=== PATIENT | female | born 1980 | race Caucasian/White ===

== ENCOUNTER 2017-06-04 11:34 | Emergency (ER) | payer OTHER ==
[2017-06-04 12:10] VITALS: BP 153/79
--- NOTE | 2017-06-04 13:30 | RAD ---
INDICATION: Right foot pain. Evaluate for foreign body. COMPARISON: None TECHNIQUE: AP, lateral, and oblique views were obtained. FINDINGS: The bony structures, joint spaces, and soft tissues are normal for age. IMPRESSION: NEGATIVE EXAMINATION. NO FOREIGN BODY IS IDENTIFIED..
--- NOTE | 2017-06-04 14:17 | UC ---
Lower Extremity/Ankle HPI - HPI Summary HPI Summary: ONE WEEK OF DEVELOPING TENDER LUMP TO PLANTAR ASPECT OF RIGHT LATERAL FOOT. UNSURE IF THIS COULD BE A POSSIBLE FOREIGN BODY. NO FEVER. - History of Current Complaint Chief Complaint: UCForeignBody Stated Complaint: FB IN FOOT Time Seen by Provider: 06/04/17 12:24 Hx Obtained From: Patient Hx Last Menstrual Period: 05/26/17 Onset/Duration: Gradual Onset, Lasting Days, Still Present Severity Initially: Mild Severity Currently: Moderate Pain Intensity: 3 Pain Scale Used: 0-10 Numeric Aggravating Factor(s): Standing, Ambulation Alleviating Factor(s): Rest, Elevation Able to Bear Weight: No - Risk Factors Gout Risk Factors: Negative DVT Risk Factors: Negative Septic Arthritis Risk Factor: Negative - Allergies/Home Medications Allergies/Adverse Reactions: Allergies Allergy/AdvReac Type Severity Reaction Status Date / Time Haloperidol [From Haldol] AdvReac Hallucinati Verified 06/04/17 12:05 ons Valproic Acid [From Depakote] AdvReac Altered Verified 06/04/17 12:05 Mental Status Home Medications: Home Medications ARIPiprazole TAB* [Abilify 15 MG TAB*] 06/04/17 [History] SitaGLIPtin (NF) [Januvia (NF)] 25 mg PO 06/04/17 [History] PMH/Surg Hx/FS Hx/Imm Hx Previously Healthy: Yes - Surgical History Surgical History: Yes Surgery Procedure, Year, and Place: D&C; elective ab; tubal ligation - Family History Known Family History: Positive: Hypertension - Social History Occupation: Employed Full-time Lives: With Family Alcohol Use: None Substance Use Type: None Smoking Status (MU): Heavy Every Day Tobacco Smoker Type: Cigarettes Amount Used/How Often: 1 PPD Length of Time of Smoking/Using Tobacco: since age 15 Household Exposure Type: Cigarettes Cessation Counseling: Patient Advised to Stop - Immunization History Most Recent Influenza Vaccination: unknown and refuses. Most Recent Tetanus Shot: unknown to pt. Most Recent Pneumonia Vaccination: n/a pt refused. Review of Systems Constitutional: Negative Skin: Other - TENDER LUMP RIGHT FOOT LATERAL PLANTAR ASPECT Eyes: Negative ENT: Negative Respiratory: Negative Cardiovascular: Negative Gastrointestinal: Negative Genitourinary: Negative Motor: Negative Neurovascular: Negative Musculoskeletal: Arthralgia, Myalgia Neurological: Negative Psychological: Negative Is Patient Immunocompromised?: No All Other Systems Reviewed And Are Negative: Yes Physical Exam Triage Information Reviewed: Yes Appearance: Well-Appearing, No Pain Distress, Well-Nourished Vital Signs: Initial Vital Signs Temp 97.9 F 06/04/17 12:07 Pulse 79 06/04/17 12:07 Resp 20 06/04/17 12:07 BP 153/79 06/04/17 12:07 Pulse Ox 99 06/04/17 12:07 Vital Signs Reviewed: Yes Eye Exam: Normal ENT Exam: Normal ENT: Positive: Normal ENT inspection, Hearing grossly normal, Pharynx normal Dental Exam: Normal Neck exam: Normal Neck: Positive: Supple, Nontender, No Lymphadenopathy Respiratory Exam: Normal Respiratory: Positive: Chest non-tender, Lungs clear, Normal breath sounds, No respiratory distress, No accessory muscle use Cardiovascular Exam: Normal Cardiovascular: Positive: RRR, No Murmur, Pulses Normal Abdominal Exam: Normal Abdomen Description: Positive: Nontender, No Organomegaly Musculoskeletal Exam: Normal Musculoskeletal: Positive: Strength Intact, ROM Intact Neurological Exam: Normal Psychological Exam: Normal Skin: Positive: Other - RIGHT FOOT LATERAL PLANTAR ASPECT 1CM X 1CM TENDER NODULE Lower Extremity Course/Dx - Differential Dx/Diagnosis Differential Diagnosis/HQI/PQRI: Cellulitis, Fracture (Closed), Sprain, Strain, Other Provider Diagnoses: POSSIBLE RETAINED FB RIGHT FOOT Discharge - Discharge Plan Condition: Stable Disposition: HOME Patient Education Materials: Soft Tissue Foreign Body (ED) Referrals: Andre Melton DO [Primary Care Provider] - Beni Jacobson MD [Medical Doctor] -
== END 2017-06-04 13:45 | disposition home or self-care (01) ==
LOC: UCEAST 11:34
DX: R22.9 Localized swelling, mass and lump, unspecified (principal); Z88.8 Allergy status to other drugs, medicaments and biological substances; F17.210 Nicotine dependence, cigarettes, uncomplicated
CPT/HCPCS: 99211; G0463

== ENCOUNTER → 2017-07-12 18:43 | Emergency (ER) | payer OTHER ==
[2017-07-12 20:01] VITALS: BP 129/84
--- NOTE | 2017-07-12 21:29 | UC ---
Respiratory Complaint HPI - HPI Summary HPI Summary: chest cold throat tickle and cough began this morning - History of Current Complaint Chief Complaint: UCGeneralIllness Stated Complaint: CHEST CONGESTION Time Seen by Provider: 07/12/17 21:25 Hx Obtained From: Patient Hx Last Menstrual Period: jun 12 ?: No Onset/Duration: Sudden Onset Timing: Constant Severity Initially: Mild Severity Currently: Mild Character: Cough: Nonproductive Alleviating Factors: Nothing Associated Signs And Symptoms: Positive: URI - Allergies/Home Medications Allergies/Adverse Reactions: Allergies Allergy/AdvReac Type Severity Reaction Status Date / Time Haloperidol [From Haldol] AdvReac Hallucinati Verified 06/04/17 12:05 ons Valproic Acid [From Depakote] AdvReac Altered Verified 06/04/17 12:05 Mental Status Home Medications: Home Medications Aripiprazole Maintena (NF) [Abilify Maintena (NF)] 400 mg IM Q28D 07/12/17 [ History Confirmed 07/12/17] PMH/Surg Hx/FS Hx/Imm Hx Previously Healthy: No Psychological History: Schizophrenia - Surgical History Surgical History: Yes Surgery Procedure, Year, and Place: D&C - Family History Known Family History: Positive: None - Social History Occupation: Unemployed Lives: With Family Alcohol Use: Rare Substance Use Type: None Smoking Status (MU): Heavy Every Day Tobacco Smoker Length of Time of Smoking/Using Tobacco: 26 years Household Exposure Type: Cigarettes Cessation Counseling: Patient Advised to Stop Review of Systems Constitutional: Negative Skin: Negative Eyes: Negative ENT: Negative Respiratory: Cough Cardiovascular: Negative Gastrointestinal: Negative Genitourinary: Negative Motor: Negative Neurovascular: Negative Musculoskeletal: Arthralgia Neurological: Headache Psychological: Negative Is Patient Immunocompromised?: No All Other Systems Reviewed And Are Negative: Yes Physical Exam Triage Information Reviewed: Yes Appearance: Well-Appearing, No Pain Distress, Well-Nourished Vital Signs: Initial Vital Signs Temp 98.0 F 07/12/17 19:55 Pulse 90 07/12/17 19:55 Resp 18 07/12/17 19:55 BP 129/84 07/12/17 19:55 Pulse Ox 99 07/12/17 19:55 Vital Signs Reviewed: Yes Eye Exam: Normal Eyes: Positive: Conjunctiva Clear ENT Exam: Normal ENT: Positive: Normal ENT inspection, Hearing grossly normal, Pharynx normal, Sinus tenderness, Uvula midline. Negative: Nasal congestion, Nasal drainage, Tonsillar swelling, Tonsillar exudate, Trismus, Muffled voice, Hoarse voice Dental Exam: Normal Neck exam: Normal Neck: Positive: Supple, Nontender, No Lymphadenopathy Respiratory Exam: Normal Respiratory: Positive: Chest non-tender, Lungs clear, Normal breath sounds, No respiratory distress, No accessory muscle use Cardiovascular Exam: Normal Cardiovascular: Positive: RRR, No Murmur, Pulses Normal, Brisk Capillary Refill Musculoskeletal Exam: Normal Musculoskeletal: Positive: Strength Intact, ROM Intact, No Edema Neurological Exam: Normal Neurological: Positive: Alert Psychological Exam: Normal Skin Exam: Normal UC Diagnostic Evaluation - Laboratory O2 Sat by Pulse Oximetry: 99 Respiratory Course/Dx - Course Course Of Treatment: may use zithromax if sx do not rexolve with fluids, tylenol or ibuprofen - Differential Dx/Diagnosis Provider Diagnoses: nicotine dependent, Bronchitis Discharge - Discharge Plan Condition: Stable Disposition: HOME Prescriptions: Azithromycin TAB* [Zithromax TAB (Z-MAGDALENO) 250 mg #6 tabs] 250 mg PO DAILY #4 tab Patient Education Materials: How to Stop Smoking (ED), Acute Bronchitis (ED), How to Use a Metered-Dose Inhaler and a Spacer (ED) Referrals: Andre Melton DO [Primary Care Provider] - If Needed
[2017-07-12] MEDS: Azithromycin TAB* 250 MG PO ONE (22:03)
[2017-07-12] MEDS: Albuterol HFA INHALER* 8 gm MDI INH ONE (22:04)
== END | disposition home or self-care (01) ==
LOC: MERGE 18:43 → UCEAST 18:43
DX: J40 Bronchitis, not specified as acute or chronic (principal); Z88.8 Allergy status to other drugs, medicaments and biological substances; F20.9 Schizophrenia, unspecified; Z72.0 Tobacco use
CPT/HCPCS: 99202; A9270-GY; G0463

== ENCOUNTER 2017-10-26 17:13 | Emergency (ER) | payer OTHER ==
[2017-10-26 17:46] VITALS: BP 150/90
--- NOTE | 2017-10-26 18:39 | UC ---
Complaint Female HPI - HPI Summary HPI Summary: 37 yo WF c/o urinary frequency urgency and dysuria x 1 week asociated with f/c and LBP - History Of Current Complaint Chief Complaint: UCGU Stated Complaint: URINARY DISCOMFORT Time Seen by Provider: 10/26/17 17:49 Hx Obtained From: Patient Hx Last Menstrual Period: 10/14/17 Onset/Duration: Lasting Days Timing: Lasting Days Severity Initially: Moderate Severity Currently: Moderate Pain Intensity: 8 - Allergies/Home Medications Allergies/Adverse Reactions: Allergies Allergy/AdvReac Type Severity Reaction Status Date / Time divalproex sodium Allergy Altered Verified 10/26/17 17:47 [From Depakote] Mental Status haloperidol [From Haldol] Allergy Hallucinati Verified 10/26/17 17:47 ons PMH/Surg Hx/FS Hx/Imm Hx - Surgical History Surgical History: Yes Surgery Procedure, Year, and Place: D&C; elective ab; tubal ligation - Family History Known Family History: Positive: None, Hypertension - Social History Alcohol Use: None Substance Use Type: None Smoking Status (MU): Heavy Every Day Tobacco Smoker Type: Cigarettes Amount Used/How Often: 1 PPD Length of Time of Smoking/Using Tobacco: since age 15 Household Exposure Type: Cigarettes - Immunization History Most Recent Influenza Vaccination: unknown and refuses. Most Recent Tetanus Shot: unknown to pt. Most Recent Pneumonia Vaccination: n/a pt refused. Review of Systems Constitutional: Fever, Chills Skin: Negative Eyes: Negative ENT: Negative Respiratory: Negative Cardiovascular: Negative Gastrointestinal: Negative Genitourinary: Dysuria, Frequency, Urgency, Other - foul smelling urine Motor: Negative Neurovascular: Negative Musculoskeletal: Negative Neurological: Negative Psychological: Negative All Other Systems Reviewed And Are Negative: Yes Physical Exam Triage Information Reviewed: Yes Appearance: Well-Appearing Vital Signs: Initial Vital Signs Temp 36.7 C 10/26/17 17:41 Pulse 106 10/26/17 17:41 Resp 16 10/26/17 17:41 BP 150/90 10/26/17 17:41 Pulse Ox 98 10/26/17 17:41 Eye Exam: Normal ENT Exam: Normal Dental Exam: Normal Neck exam: Normal Neck: Positive: 1 Respiratory Exam: Normal Cardiovascular Exam: Normal Abdomen Description: Positive: Soft, CVA Tenderness (R) - mild, CVA Tenderness ( L) Musculoskeletal Exam: Normal Neurological Exam: Normal Psychological Exam: Normal Skin Exam: Normal Complaint Female Dx - Course Course Of Treatment: UA neg with clinical signs of UTI- will tx with Macrobid x 10days - Differential Dx/Diagnosis Provider Diagnoses: Ascending UTI. elevated BP in acute illness Discharge - Sign-Out/Discharge Documenting (check all that apply): Discharge - Discharge Plan Condition: Stable Disposition: HOME Prescriptions: Nitrofurantoin Macrocrystal [Nitrofurantoin] 100 mg PO 12 10 Days #20 capsule Patient Education Materials: Urinary Tract Infection in Women (ED) Referrals: Andre Melton DO [Primary Care Provider] - - Billing Disposition and Condition Condition: STABLE Disposition: HOME
== END 2017-10-26 19:13 | disposition home or self-care (01) ==
LOC: UCEAST 17:13
DX: N39.0 Urinary tract infection, site not specified (principal); R03.0 Elevated blood-pressure reading, without diagnosis of hypertension; Z88.8 Allergy status to other drugs, medicaments and biological substances; F17.210 Nicotine dependence, cigarettes, uncomplicated
CPT/HCPCS: 81003; 99212; G0463

== ENCOUNTER 2017-12-12 15:56 | Emergency (ER) | payer OTHER ==
[2017-12-12 16:10] VITALS: BP 131/83
--- NOTE | 2017-12-12 16:20 | UC ---
Respiratory Complaint HPI - HPI Summary HPI Summary: 37 yo female presents with productive cough and "burning" in lungs for 3 days - worst today. She tells me that she has been coughing up yellow "nasty" tasting mucus and she is sure she has pneumonia. Does feel SOB at times. Still smoking daily. Denies fever, chills, sore throat, chest pain, abdominal pain. - History of Current Complaint Chief Complaint: UCRespiratory Stated Complaint: RESP COMPLAINT Time Seen by Provider: 12/12/17 16:19 Hx Obtained From: Patient Hx Last Menstrual Period: 10/14/17 Onset/Duration: Gradual Onset Severity Initially: Severe Severity Currently: Severe Pain Intensity: 10 Pain Scale Used: 0-10 Numeric Character: Cough: Productive - Allergies/Home Medications Allergies/Adverse Reactions: Allergies Allergy/AdvReac Type Severity Reaction Status Date / Time divalproex sodium Allergy Altered Verified 12/12/17 16:10 [From Depakote] Mental Status haloperidol [From Haldol] Allergy Hallucinati Verified 12/12/17 16:10 ons PMH/Surg Hx/FS Hx/Imm Hx - Additional Past Medical History Additional PMH: Anxiety - Surgical History Surgical History: Yes Surgery Procedure, Year, and Place: D&C; elective ab; tubal ligation - Family History Known Family History: Positive: None, Hypertension - Social History Lives: With Family Alcohol Use: None Substance Use Type: None Smoking Status (MU): Heavy Every Day Tobacco Smoker Type: Cigarettes Amount Used/How Often: 1 PPD Length of Time of Smoking/Using Tobacco: since age 15 Household Exposure Type: Cigarettes - Immunization History Most Recent Influenza Vaccination: unknown and refuses. Most Recent Tetanus Shot: unknown to pt. Most Recent Pneumonia Vaccination: n/a pt refused. Review of Systems Constitutional: Negative Skin: Negative Eyes: Negative ENT: Negative Respiratory: Shortness Of Breath, Cough Cardiovascular: Negative Gastrointestinal: Negative Neurovascular: Negative Neurological: Negative Psychological: Negative All Other Systems Reviewed And Are Negative: Yes Physical Exam - Summary Physical Exam Summary: GENERAL: NAD. WDWN. No pain distress. SKIN: No rashes, sores, lesions, or open wounds. HEENT: Head: AT/NC Eyes: Conjunctiva clear without inflammation or discharge. Ears: Hearing grossly normal. TMs intact, no bulging, erythema, or edema. Nose: Nasal mucosa pink and moist. NTTP maxillary and frontal sinus. Throat: Posterior oropharynx without exudates, erythema, or tonsillar enlargement. Uvula midline. NECK: Supple. Nontender. No lymphadenopathy. CHEST: Mild wheezing throughout. No r/r. No accessory muscle use. Breathing comfortably and in no distress. CV: RRR. Without m/r/g. Pulses intact. Brisk cap refill. NEURO: Alert. CN II-XII grossly intact. PSYCH: Age appropriate behavior. Triage Information Reviewed: Yes Vital Signs: Initial Vital Signs Temp 98.6 F 12/12/17 16:06 Pulse 104 12/12/17 16:06 Resp 20 12/12/17 16:06 BP 131/83 12/12/17 16:06 Pulse Ox 95 12/12/17 16:06 Diagnostic Evaluation - Laboratory O2 Sat by Pulse Oximetry: 95 Respiratory Course/Dx - Course Course Of Treatment: XR: IMPRESSION: LIKELY RIGHT LOWER LOBE PNEUMONIA. FOLLOW- UP CHEST X-RAY AFTER AN APPROPRIATE COURSE OF. THERAPY IS ADVISED TO CONFIRM RESOLUTION. Rx for levaquin and advised f/u in 4-6 weeks. - Differential Dx/Diagnosis Provider Diagnoses: RLL pneumonia Discharge - Sign-Out/Discharge Documenting (check all that apply): Discharge/Admit/Transfer - Discharge Plan Condition: Stable Disposition: HOME Prescriptions: Levofloxacin TAB* [Levaquin TAB*] 750 mg PO DAILY #5 tab Patient Education Materials: Pneumonia (ED) Referrals: Andre Melton DO [Primary Care Provider] - Additional Instructions: If you develop a fever, shortness of breath, chest pain, new or worsening symptoms - please call your PCP or go to the ED. 1) Please follow up in 6 weeks with your PCP for a follow up chest x ray - Billing Disposition and Condition Condition: STABLE Disposition: HOME
--- NOTE | 2017-12-12 16:45 | RAD ---
INDICATION: Cough COMPARISON: Chest x-ray September 07, 2013 TECHNIQUE: PA and lateral views of the chest were obtained. FINDINGS: The heart and mediastinum are normal in size and contour. Overlying the right lower lobe is a 4.8 cm focal density localized to the posterior right lower lobe on the lateral view consistent with pneumonia. Elsewhere the lungs are clear. There is no evidence of large pleural effusion. Visualized bones are normal for the patient's age. There is no radiographic evidence of free air beneath the diaphragm IMPRESSION: LIKELY RIGHT LOWER LOBE PNEUMONIA. FOLLOW-UP CHEST X-RAY AFTER AN APPROPRIATE COURSE OF THERAPY IS ADVISED TO CONFIRM RESOLUTION.
== END 2017-12-12 17:10 | disposition home or self-care (01) ==
LOC: UCEAST 15:56
DX: J18.9 Pneumonia, unspecified organism (principal); F41.9 Anxiety disorder, unspecified; Z88.8 Allergy status to other drugs, medicaments and biological substances; F17.210 Nicotine dependence, cigarettes, uncomplicated
CPT/HCPCS: 71046; 99212; G0463

== ENCOUNTER 2018-04-10 16:56 | Emergency (ER) | payer OTHER ==
[2018-04-10 17:26] VITALS: BP 136/84
--- NOTE | 2018-04-10 17:46 | UC ---
Complaint Female HPI - HPI Summary HPI Summary: urinary burning x 2 days + frequency, urgency no fever, no chills , no flank pain - History Of Current Complaint Chief Complaint: UCGU Stated Complaint: POSS UTI Time Seen by Provider: 04/10/18 17:25 Hx Obtained From: Patient Hx Last Menstrual Period: 03/12/18 ?: No Onset/Duration: Gradual Onset, Lasting Days - 2, Still Present Timing: Constant Severity Initially: Moderate Severity Currently: Moderate Pain Intensity: 10 Character: Burning Aggravating Factor(s): Urination Associated Signs And Symptoms: Negative: Fever, Back Pain, Vaginal Bleeding/ Discharge, Vaginal Discharge, Nausea, Vomiting(# Of Episodes =), Genital Swelling, Genital Blisters, Retained Foregin Body (Specify) - Allergies/Home Medications Allergies/Adverse Reactions: Allergies Allergy/AdvReac Type Severity Reaction Status Date / Time divalproex sodium Allergy Altered Verified 04/10/18 17:26 [From Depakote] Mental Status haloperidol [From Haldol] Allergy Hallucinati Verified 04/10/18 17:26 ons PMH/Surg Hx/FS Hx/Imm Hx Endocrine History: Diabetes Cardiovascular History: Hypertension Respiratory History: Asthma Psychological History: Schizophrenia - Surgical History Surgical History: Yes Surgery Procedure, Year, and Place: D&C; elective ab; tubal ligation - Family History Known Family History: Positive: None, Hypertension - Social History Alcohol Use: Rare Substance Use Type: None Smoking Status (MU): Heavy Every Day Tobacco Smoker Type: Cigarettes Amount Used/How Often: 1 PPD Length of Time of Smoking/Using Tobacco: since age 15 Household Exposure Type: Cigarettes - Immunization History Most Recent Influenza Vaccination: unknown and refuses. Most Recent Tetanus Shot: unknown to pt. Most Recent Pneumonia Vaccination: n/a pt refused. Review of Systems Constitutional: Negative Skin: Negative Eyes: Negative ENT: Negative Respiratory: Negative Cardiovascular: Negative Gastrointestinal: Negative Is Patient Immunocompromised?: No All Other Systems Reviewed And Are Negative: Yes Physical Exam Triage Information Reviewed: Yes Appearance: Well-Appearing, No Pain Distress, Well-Nourished Vital Signs: Initial Vital Signs Temp 98.1 F 04/10/18 17:21 Pulse 97 04/10/18 17:21 Resp 18 04/10/18 17:21 BP 136/84 04/10/18 17:21 Pulse Ox 98 09/18/18 17:21 Vital Signs Reviewed: Yes Eyes: Positive: Conjunctiva Clear ENT: Positive: Normal ENT inspection, Hearing grossly normal, Pharynx normal Neck: Positive: Supple, Nontender, No Lymphadenopathy Respiratory: Positive: Chest non-tender, Lungs clear, Normal breath sounds Cardiovascular: Positive: RRR, No Murmur, Pulses Normal Abdominal Exam: Normal Abdomen Description: Positive: Nontender, No Organomegaly, Soft. Negative: CVA Tenderness (R), CVA Tenderness (L), Distended, Guarding Bowel Sounds: Positive: Present Complaint Female Dx - Differential Dx/Diagnosis Provider Diagnoses: dysuria Discharge - Sign-Out/Discharge Documenting (check all that apply): Patient Departure All imaging exams completed and their final reports reviewed: No Studies - Discharge Plan Condition: Stable Disposition: HOME Prescriptions: Phenazopyridine TAB* [Pyridium 100 mg TAB*] 200 mdi PO TID #6 tab Sulfamethox/Trimethoprim DS* [Bactrim DS 800/160 TAB*] 1 tab PO BID #10 tab Patient Education Materials: Dysuria (ED) Referrals: Andre Melton DO [Primary Care Provider] - If Needed - Billing Disposition and Condition Condition: STABLE Disposition: Home
== END 2018-04-10 17:48 | disposition home or self-care (01) ==
LOC: UCEAST 16:56
DX: R30.0 Dysuria (principal); Z88.8 Allergy status to other drugs, medicaments and biological substances; F17.210 Nicotine dependence, cigarettes, uncomplicated
CPT/HCPCS: 81003; 87086; 99212; G0463

== ENCOUNTER 2019-07-05 15:38 | Emergency (ER) | payer OTHER ==
--- OUTSIDE RECORDS SUMMARY | 2019-07-05 15:44 | XMS REPORT | Continuity of Care Document ---
:1980 External Reference #:[id number] Author Name Andre Melton D.O. 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 Onset: 12/11/2015 Cyst of ovary Cecilia Echavarria PA Onset: 08/17/2016 Type 2 diabetes mellitus Cecilia Echavarria PA Onset: 05/30/2017 Tobacco user Cecilia Echavarria PA Onset: 05/30/2017 Schizophrenia Cecilia Echavarria PA Onset: 05/30/2017 Social History Type Date Description Comments Sex Unknown Tobacco Use Reviewed: 05/22/18 Current Cigarette Planning to quit by Smoker 1 Pack Daily 2017 Smoking Status Reviewed: 07/01/19 Current Cigarette Planning to quit by Smoker 1 Pack Daily 2017 ETOH Use Denies alcohol use Recreational Drug Use Denies Drug Use Tobacco Use Start: Unknown Patient is a current smoker, smokes every day Exercise Type/Frequency Exercises rarely Sun Exposure Uses sunscreen Seat Belt/Car Seat Seat Belt Use - Yes Allergies, Adverse Reactions, Alerts Active Allergies Reaction Severity Comments Date Depakote hallucinations 11/04/2015 Haldol hallucinaitons 11/04/2015 Metformin vomitting 11/04/2015 Medications Active Medications SIG Qnty Indications Ordering Date Provider Nicotine Polacrilex Dissolve 1 324units F17.210 Andre Melton, 07/01/2019 lozenge by mouth D.O. 4mg Lozenges 20 times per day as needed for smoking cessation Acarbose take 1 tablet by 270tabs E11.65 Andre Melton, 07/01/2019 100mg mouth with meals D.O. Tablets 2-3 times per day Best at the start of a meal for type 2 diabetes E11.9 Olena Microlet 2 as directed Unknown 06/30/2019 Lancets Alogliptin Benzoate take 1 tablet by 90tabs E11.9 JulitoOdin bobon, 2018 25mg mouth daily for type D.O. Tablets 2 diabetes E11.65 Pioglitazone HCL take 1 tablet by 90tabs E11.9 Odin Meltonon, 05/14/2019 45mg Tablets mouth once daily D.O. for blood sugar control Magnesium 1 daily 90caps E11.9 Odin Meltonon, 04/11/2019 500mg Capsules D.O. E83.42 Vitamin D3 1 by mouth every 90caps E55.9 Odin Meltonon, 04/11/2019 5000Unit day D.O. Capsules Alcohol Swabs use as needed when 200units E11.65 Andre Melton, 2018 70% Pads checking blood D.O. sugars and for injections of insulin Multivitamin Adult 1 by mouth every Unknown 03/09/2017 day Tablets Abilify 300mg inj monthly Unknown at mental health History Medications Januvia take 1 tablet by 90tabs E11.9 Odin Meltonon, 05/25/2019 - 100mg mouth daily for D.O. 06/17/2019 Tablets type 2 diabetes E11.65 Pioglitazone HCL take 1 tablet by 30tabs E11.9 Andre Melton, 04/24/2019 - 30mg mouth daily for D.O. 05/14/2019 Tablets type 2 diabetes Pioglitazone HCL take 1 tablet by 90tabs Andre Melton, 04/11/2019 - 15mg mouth daily for D.O. 04/24/2019 Tablets type 2 diabetes Lancets Micro Thin use 1-4 times 100units E11.65 Andre Melton, 2018 - 33G daily as directed D.O. 06/30/2019 Thin 33G Misc Pen [place] 1/2" use weekly with 15units E11.65 Andre Melton, 2018 - 29G Trulicity D.O. 06/30/2019 X 12mm Misc Trulicity subq: initial: 4ml Andre Melton, 02/18/2019 - 0.75 mg once D.O. 04/10/2019 0.75mg/0.5ML weekly Solution Pen-Inject Immunizations CPT Code Status Date Vaccine Lot # [id number] Given 11/04/2015 Adacel or Boostrix, TDaP [id number] Vital Signs Date Vital Result Comment 07/01/2019 4:38pm BP Systolic 118 mmHg BP Diastolic 72 mmHg Body Temperature 97.8 F Weight 182.50 lb 05/25/2019 9:03am BP Systolic 122 mmHg BP Diastolic 70 mmHg Weight 176.50 lb Results Test Acquired Date Facility Test Result H/L Range Note Laboratory test finding 07/01/2019 In House Hemoglobin A1c 10.2 Laboratory test finding 04/11/2019 In House Hemoglobin A1c 11.1 Laboratory test finding 01/11/2019 In House Hemoglobin A1c 11.9 Procedures Date Code Description Status 04/11/2019 627732468 Diabetic Foot Exam Completed 01/11/2019 34290 Electrocardiogram Complete Completed 03/21/2018 [id number] Diabetic Retinal Eye Exam Completed 02/16/2018 [id number] Diabetic Retinal Eye Exam Completed Medical Devices Description No Information Available Encounters Type Date Location Provider Dx Diagnosis Office Visit 07/01/2019 Main Office Andre Melton, E11.9 Type 2 diabetes 4:30p D.O. mellitus without complications F17.210 Nicotine dependence, cigarettes, uncomplicated E11.65 Type 2 diabetes mellitus with hyperglycemia J02.9 Acute pharyngitis, unspecified J02.9 Acute pharyngitis, unspecified Office Visit 05/25/2019 9:15a Main Office Andre Melton, E11.9 Type 2 diabetes D.O. mellitus without complications F17.210 Nicotine dependence, cigarettes, uncomplicated F20.9 Schizophrenia, unspecified E11.65 Type 2 diabetes mellitus with hyperglycemia Office Visit 04/11/2019 4:30p Main Office Andre Melton Z68.28 Body mass index D.O. (BMI) 28.0-28.9, adult E11.9 Type 2 diabetes mellitus without complications Z84.81 Family history of carrier of genetic disease F17.210 Nicotine dependence, cigarettes, uncomplicated F20.9 Schizophrenia, unspecified Z91.14 Patient's other noncompliance with medication regimen Z91.11 Patient's noncompliance with dietary regimen Office Visit 02/18/2019 4:00p Main Office Andre Melton Z84.81 Family history of D.O. 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 carrier of genetic disease F17.210 Nicotine dependence, cigarettes, uncomplicated F20.9 Schizophrenia, unspecified Z91.14 Patient's other noncompliance with medication regimen M25.551 Pain in right hip M79.661 Pain in right lower leg E11.9 Type 2 diabetes mellitus without complications E11.65 Type 2 diabetes mellitus with hyperglycemia Assessments Date Code Description Provider 07/01/2019 E11.9 Type 2 diabetes mellitus without Sopchak, Andre, D.O. complications 07/01/2019 F17.210 Nicotine dependence, cigarettes, Sopchak, Andre, D.O. uncomplicated 07/01/2019 E11.65 Type 2 diabetes mellitus with hyperglycemia Sopludak, Andre , D.O. 07/01/2019 J02.9 Acute pharyngitis, unspecified Sopchak, Andre, D.O. 07/01/2019 J02.9 Acute pharyngitis, unspecified Sopchak, Andre, D.O. 05/25/2019 E11.9 Type 2 diabetes mellitus without Sopchak, Andre, D.O. complications 05/25/2019 F17.210 Nicotine dependence, cigarettes, Sopchak, Andre, D.O. uncomplicated 05/25/2019 F20.9 Schizophrenia, unspecified Sopchak, Andre, D.O. 05/25/2019 E11.65 Type 2 diabetes mellitus with hyperglycemia Odin Meltonon , D.O. 04/11/2019 Z68.28 Body mass index (BMI) 28.0-28.9, adult Odin Meltonon, D.O. 04/11/2019 E11.9 Type 2 diabetes mellitus without Sopchak, Andre, D.O. complications 04/11/2019 Z84.81 Family history of carrier of genetic disease Andre Melton D.O. 04/11/2019 F17.210 Nicotine dependence, cigarettes, Andre Melton D.O. uncomplicated 04/11/2019 F20.9 Schizophrenia, unspecified Odin Meltonon D.O. 04/11/2019 Z91.14 Patient's other noncompliance with medication Andre Melton D.O. regimen 04/11/2019 Z91.11 Patient's noncompliance with dietary regimen Andre Melton D.O. 02/18/2019 Z84.81 Family history of carrier of genetic disease Andre Melton D.O. 02/18/2019 F17.210 Nicotine dependence, cigarettes, Andre Melton D.O. uncomplicated 02/18/2019 F20.9 Schizophrenia, unspecified Odin Meltonon, D.O. 02/18/2019 Z91.14 Patient's other noncompliance with medication Andre Melton D.O. regimen 02/18/2019 E11.9 Type 2 diabetes mellitus without Odin Meltonon D.O. complications 02/18/2019 E11.65 Type 2 diabetes mellitus with hyperglycemia Andre Melton D.O. 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 01/11/2019 Z84.81 Family history of carrier of genetic disease Andre Melton D.O. 01/11/2019 F17.210 Nicotine dependence, cigarettes, Andre Melton D.O. uncomplicated 01/11/2019 F20.9 Schizophrenia, unspecified Andre Melton D.O. 01/11/2019 Z91.14 Patient's other noncompliance with medication Andre Melton D.O. regimen 01/11/2019 M25.551 Pain in right hip Andre Melton D.O. 01/11/2019 M79.661 Pain in right lower leg Andre Melton D.O. 01/11/2019 E11.9 Type 2 diabetes mellitus without Andre Melton D.O. complications 01/11/2019 E11.65 Type 2 diabetes mellitus with hyperglycemia Andre Melton D.O. Plan of Treatment Future Appointment(s):09/30/2019 4:30 pm - Andre Melton D.O. at Main [facility]407/01/2019 - Andre Melton D.O.E11.9 Type 2 diabetes mellitus without complicationsNew Medication:Acarbose 100 mg - take 1 tablet by mouth with meals 2-3 times per day Best at the start of a meal for type 2 diabetesFollow up:3 months DM w/A1cF17.210 Nicotine dependence, cigarettes, uncomplicatedNew Medication:Nicotine Polacrilex 4 mg - Dissolve 1 lozenge by mouth 20 times per day as needed for smoking pogfbezowV04.65 Type 2 diabetes mellitus with hyperglycemiaNew Medication:Acarbose 100 mg - take 1 tablet by mouth with meals 2-3 times per day Best at the start of a meal for type 2 iamsuexlT22.9 Acute pharyngitis, unspecifiedComments:do not share hygienic supplies with other or eating utensilsSTEAM BID gargle with warm liquids cepacol or chlorosceptichoney with lemon prnt c doneJ02.9 Acute pharyngitis, unspecifiedComments:do not share hygienic supplies with other or eating utensilsSTEAM BID gargle with warm liquids cepacol or chlorosceptichoney with lemon prnt c done Goals 07/01/2019 - Andre Melton D.O.E11.9 Type 2 diabetes mellitus without complicationsToday's A1c was: 10.2 Hemoglobin A1C (average glucose) < 7.0 - this is checked every 3 months.Avoid/limit carbohydrates: foods like Potatoes , Wheat (bread,pasta,cookies,crackers,pretzels,dough),Rice, [place], and Sugar Limit sweetened beverages. Check eyes yearly with a dialated exam with an manager club Check for diabetic kidney disease yearly with urine microalbumin test Check your feetby looking at all sides daily; once a year at least have them checked by a doctor. Functional Status Description No Information Available Mental Status Description No Information Available Referrals Description No Information Available
--- OUTSIDE RECORDS SUMMARY | 2019-07-05 15:44 | XMS REPORT | Continuity of Care Document ---
:1980 External Reference #:[id number] Author Name Andre Melton D.O. 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 type 2 diabetes Pioglitazone HCL take 1 tablet by 90tabs E11.9 Andre Melton, 05/14/2019 45mg mouth once daily D.O. Tablets for blood sugar control Magnesium 1 daily 90caps E11.9 Andre Melton, 04/11/2019 500mg D.O. Capsules E83.42 Vitamin D3 1 by mouth every 90caps E55.9 Andre Melton, 04/11/2019 5000Unit day D.O. Capsules Lancets Micro Thin 33G use 1-4 times daily 100units E11.65 FreemanAndre gonzalez, 02/18/2019 as directed D.O. Thin 33G Misc Pen [place] 1/2" use weekly with 15units E11.65 Linh Andre, 02/18/2019 29G X Trulicity D.O. 12mm Misc Alcohol Swabs use as needed when 200units E11.65 LinhAndre, 2018 70% Pads checking blood D.O. sugars and for injections of insulin Multivitamin Adult 1 by mouth every Unknown 03/09/2017 day Tablets Abilify 300mg inj monthly Unknown at mental health History Medications Pioglitazone HCL take 1 tablet by 30tabs E11.9 Linh Andre, 04/24/2019 - 30mg mouth daily for D.O. 05/14/2019 Tablets type 2 diabetes Pioglitazone HCL take 1 tablet by 90tabs LinhAndre, 04/11/2019 - 15mg mouth daily for D.O. 04/24/2019 Tablets type 2 diabetes Trulicity subq: initial: 4ml FreemanAndre gonzalez, 02/18/2019 - 0.75mg/0.5ML 0.75 mg once D.O. 04/10/2019 Solution Pen-Inject weekly Immunizations CPT Code Status Date Vaccine Lot # [id number] Given 11/04/2015 Adacel or Boostrix, TDaP [id number] Vital Signs Date Vital Result Comment 05/25/2019 9:03am BP Systolic 122 mmHg BP Diastolic 70 mmHg Weight 176.50 lb 04/11/2019 4:51pm BP Systolic 122 mmHg BP Diastolic 80 mmHg Height 65.5 inches 5'5.50" Weight 173.00 lb BMI (Body Mass Index) 28.3 kg/m2 Results Test Acquired Date Facility Test Result H/L Range Note Laboratory test 04/11/2019 In House Hemoglobin A1c 11.1 finding Laboratory test 01/11/2019 In House Hemoglobin A1c 11.9 finding Lipid Profile 12/15/2018 [facility] Triglycerides 296 mg/dL 1 (Trig/Chol/HDL) [phone] Cholesterol 205 mg/dL 2 HDL Cholesterol 39.2 mg/dL 3 LDL Cholesterol 107 mg/dL 4 CBC Auto Diff 12/15/2018 [facility] White Blood 8.4 10^3/uL Normal 3.5-10.8 [phone] Count Red Blood Count 4.81 10^6/uL Normal 3.70-4.87 Hemoglobin 15.6 g/dL Normal 12.0-16.0 Hematocrit 46 % Normal 35-47 Mean Corpuscular Volume 95 fL Normal 80-97 Mean Corpuscular Hemoglobin 32 pg High 27-31 Mean Corpuscular HGB Conc 34 g/dL Normal 31-36 Red Cell Distribution Width 14 % Normal 10.5-15 Platelet Count 261 10^3/uL Normal 150-450 Mean Platelet Volume 8.3 fL Normal 7.4-10.4 Abs Neutrophils 5.7 10^3/uL Normal 1.5-7.7 Abs Lymphocytes 1.9 10^3/uL Normal 1.0-4.8 Abs Monocytes 0.7 10^3/uL Normal 0-0.8 Abs Eosinophils 0.2 10^3/uL Normal 0-0.6 Abs Basophils 0.0 10^3/uL Normal 0-0.2 Abs Nucleated RBC 0.0 10^3/uL Granulocyte % 67.6 % Lymphocyte % 22.1 % Monocyte % 7.8 % Eosinophil % 2.1 % Basophil % 0.4 % Nucleated Red Blood Cells % 0.0 Comp Metabolic Panel 12/15/2018 [facility] Sodium 133 mmol/L Low 135- 145 [phone] Potassium 4.4 mmol/L Normal 3.5-5.0 Chloride 100 mmol/L Low 101-111 Co2 Carbon Dioxide 25 mmol/L Normal 22-32 Anion Gap 8 mmol/L Normal 2-11 Glucose 336 mg/dL High 70-100 Blood Urea Nitrogen 12 mg/dL Normal 6-24 Creatinine 0.56 mg/dL Normal 0.51-0.95 BUN/Creatinine Ratio 21.4 High 8-20 Calcium 9.6 mg/dL Normal 8.6-10.3 Total Protein 6.9 g/dL Normal 6.4-8.9 Albumin 4.4 g/dL Normal 3.2-5.2 Globulin 2.5 g/dL Normal 2-4 Albumin/Globulin Ratio 1.8 Normal 1-3 Total Bilirubin 0.60 mg/dL Normal 0.2-1.0 Alkaline Phosphatase 94 U/L Normal 34-104 Alt 43 U/L Normal 7-52 Ast 23 U/L Normal 13-39 Egfr Non- 121.8 >60 Egfr 147.4 >60 5 Laboratory test 12/15/2018 [facility] TSH (Thyroid 1.91 mcIU/mL Normal 0.34-5.60 finding [phone] Stim Horm) Vitamin B12 426 pg/mL Normal 180-914 6 Magnesium 1.6 mg/dL Low 1.9-2.7 Alpha 1 Antitrypsin A1a 94 mg/dL Abnormal 100 - 190 7 Urinalysis Profile 12/10/2018 [facility] Urine Color Yellow 8 [phone] Urine Appearance Cloudy Urine Specific [place] 1.027 Normal 1.010-1.030 Urine pH 6.0 Normal 5-9 Urine Urobilinogen Negative Negative Urine Ketones Negative Negative Urine Protein Negative Negative Urine Leukocytes Negative Negative Urine Blood Negative Negative Urine Nitrite Negative Negative Urine Bilirubin Negative Negative Urine Glucose 3+(>=500 mg/dL) Abnormal Negative Urine Microalbumin 12/10/2018 [facility] Ur Microalbumin < 15.0 mg/L Random [phone] (mg/L) Urine Creatinine 21.19 mg/dL Urine Microalbumin/Creatinine TNP <31 9 Laboratory test finding 12/10/2018 In House Hemoglobin A1c 11.6 1 Desirable: <150 Borderline High: 150-199 High: 200-499 Very High: >500 2 Desirable: <200 Borderline High: 200-239 High: >239 3 Low: <40 Desirable: 40-60 High: >60 4 Desirable: <100 Near Optimal: 100-129 Borderline High: 130-159 High: 160-189 Very High: >189 5 Because ethnic data is not always readily available, this report includes an eGFR for both -Americans and non- Americans. The National Kidney Disease Education Program (NKDEP) does not endorse the use of the MDRD equation for patients that are not between the ages of 18 and 70, are , have extremes of body size, muscle mass, or nutritional status, or are non- or non-. According to the National Kidney Foundation, irrespective of diagnosis, the stage of the disease is based on the level of kidney function: Stage Description GFR(mL/min/1.73 m(2)) 1 Kidney damage with normal or decreased GFR 90 2 Kidney damage with mild decrease in GFR 60-89 3 Moderate decrease in GFR 30-59 4 Severe decrease in GFR 15-29 5 Kidney failure <15 (or dialysis) 6 Normal Range 180 to 914 Indeterminate Range 145 to 180 Deficient Range <145 7 Test Performed by: [facility] [address] [place] [address] 8 [id number] Unable to calculate due to low microalbumin Procedures Date Code Description Status 04/11/2019 001673202 Diabetic Foot Exam Completed 01/11/2019 41648 Electrocardiogram Complete Completed 03/21/2018 070912214 Diabetic Retinal Eye Exam Completed 02/16/2018 773718323 Diabetic Retinal Eye Exam Completed Medical Devices Description No Information Available Encounters Type Date Location Provider Dx Diagnosis Office Visit 05/25/2019 Main Office Andre Melton, E11.9 Type 2 diabetes 9:15a D.O. mellitus without complications F17.210 Nicotine dependence, cigarettes, uncomplicated F20.9 Schizophrenia, unspecified E11.65 Type 2 diabetes mellitus with hyperglycemia Office Visit 04/11/2019 4:30p Main Office Andre Melton, Z68.28 Body mass index D.O. (BMI) 28.0-28.9, adult E11.9 Type 2 diabetes mellitus without complications Z84.81 Family history of carrier of genetic disease F17.210 Nicotine dependence, cigarettes, uncomplicated F20.9 Schizophrenia, unspecified Z91.14 Patient's other noncompliance with medication regimen Z91.11 Patient's noncompliance with dietary regimen Office Visit 02/18/2019 4:00p Main Office Andre Melton, Z84.81 Family history of D.O. 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 carrier of genetic disease F17.210 Nicotine dependence, cigarettes, uncomplicated F20.9 Schizophrenia, unspecified Z91.14 Patient's other noncompliance with medication regimen M25.551 Pain in right hip M79.661 Pain in right lower leg E11.9 Type 2 diabetes mellitus without complications E11.65 Type 2 diabetes mellitus with hyperglycemia Office Visit 12/10/2018 4:30p Main Office Andre Melton, E11.9 Type 2 diabetes D.O. 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 complications 05/25/2019 F17.210 Nicotine dependence, cigarettes, SopchakOdinon, D.O. uncomplicated 05/25/2019 F20.9 Schizophrenia, unspecified Sopchak, Andre, D.O. 05/25/2019 E11.65 Type 2 diabetes mellitus with hyperglycemia Andre Melton , D.O. 04/11/2019 Z68.28 Body mass index (BMI) 28.0-28.9, adult Andre Melton, D.O. 04/11/2019 E11.9 Type 2 diabetes mellitus without SopOdin bobon, D.O. complications 04/11/2019 Z84.81 Family history of carrier of genetic disease Andre Melton, D.O. 04/11/2019 F17.210 Nicotine dependence, cigarettes, SopchakOdinon, D.O. uncomplicated 04/11/2019 F20.9 Schizophrenia, unspecified FreemankOdinon, D.O. 04/11/2019 Z91.14 Patient's other noncompliance with medication Andre Melton D.O. regimen 04/11/2019 Z91.11 Patient's noncompliance with dietary regimen Andre Melton D.O. 02/18/2019 Z84.81 Family history of carrier of genetic disease Andre Melton D.O. 02/18/2019 F17.210 Nicotine dependence, cigarettes, Andre Melton D.O. uncomplicated 02/18/2019 F20.9 Schizophrenia, unspecified SopchakOdinon D.O. 02/18/2019 Z91.14 Patient's other noncompliance with medication Andre Melton D.O. regimen 02/18/2019 E11.9 Type 2 diabetes mellitus without SopludakOdinon D.O. complications 02/18/2019 E11.65 Type 2 diabetes mellitus with hyperglycemia Andre Melton D.O. 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 01/11/2019 Z84.81 Family history of carrier of genetic disease Andre Melton D.O. 01/11/2019 F17.210 Nicotine dependence, cigarettes, Andre Melton D.O. uncomplicated 01/11/2019 F20.9 Schizophrenia, unspecified JulitochakOdinon D.O. 01/11/2019 Z91.14 Patient's other noncompliance with medication Andre Melton D.O. regimen 01/11/2019 M25.551 Pain in right hip Andre Melton D.O. 01/11/2019 M79.661 Pain in right lower leg Andre Melton D.O. 01/11/2019 E11.9 Type 2 diabetes mellitus without Andre Melton D.O. complications 01/11/2019 E11.65 Type 2 diabetes mellitus with hyperglycemia Andre Melton D.O. 12/10/2018 E11.9 Type 2 diabetes mellitus without Andre Melton D.O. complications 12/10/2018 N39.0 Urinary tract infection, site not specified Andre Melton D.O. 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 12/10/2018 Z84.81 Family history of carrier of genetic disease Andre Melton D.O. 12/10/2018 F17.210 Nicotine dependence, cigarettes, Andre Melton D.O. uncomplicated 12/10/2018 F20.9 Schizophrenia, unspecified Andre Melton D.O. 12/10/2018 Z91.14 Patient's other noncompliance with medication Andre Melton D.O. regimen 12/10/2018 E11.65 Type 2 diabetes mellitus with hyperglycemia Andre Melton D.O. Plan of Treatment Future Appointment(s):07/01/2019 4:30 pm - Andre Melton D.O. at Main Jylazv7305/25/2019 - Andre Melton D.O.E11.9 Type 2 diabetes mellitus without vhvvebdbixqkyS00.210 Nicotine dependence, cigarettes, thqyiyhzimcyzV66.9 Schizophrenia, dsdgjmamdjvI10.65 Type 2 diabetes mellitus with hyperglycemiaFollow up:1 month DM w/ A1c Goals 05/25/2019 - Andre Melton D.O.E11.9 Type 2 diabetes mellitus without complicationsMost recent A1c was:11.1 Hemoglobin A1C (average glucose) < 7.0 - this is checked every 3 months. Avoid/limit carbohydrates: foods like Potatoes, Wheat (bread,pasta,cookies,crackers,pretzels,dough), Rice, [place], and Sugar Limit sweetened beverages. Check eyes yearly with a dialated exam with an die try out worker stamping Check for diabetic kidney disease yearly with urine microalbumin test Check your feet by looking at all sides daily; once a year at least have them checked by a doctor. Functional Status Description No Information Available Mental Status Description No Information Available Referrals Description No Information Available
--- OUTSIDE RECORDS SUMMARY | 2019-07-05 15:44 | XMS REPORT ---
:1980 Author Organization [facility] Care Team Providers Name Role Phone DINH MAIER Primary Care Physician Unavailable Allergies, Adverse Reactions, Alerts Allergy Code CodeSystem Reaction Severity Criticality Status Start Substance Date Moderate Medications Medication Medication Medication Start Stop Route Dose Status Fill Code CodeSystem Date Date Instructions nicotine 971453 RxNorm 2018-110 bucl 4 mg 1 active Chew 1 piece (polacrilex) 02-26 gum as needed for 30 day(s) Abilify 6302604 RxNorm 2019-010 IM 300 mg active Inject 300 mg Maintena 07-27 300 intramuscularly suspens every four weeks ion,ext for 30 day(s) ended rel syring every four weeks Problems Problem Name Code CodeSystem Alternate Alternate Start End Status Narrative Code CodeSystem Date Date Nicotine 26879623 SNOMED-CT Active dependence, 3 unspecified, uncomplicated Schizoaffective 25299436 SNOMED-CT Active disorder, 3- Depressive type Relevant diagnostic tests/laboratory data Narrative No Information Procedures Procedure Code CodeSystem Target Date of Status Service Device Device Device Name Site Procedure Delivery Code Name UID Location Comprehensiv 552555 SNOMED-CT () 2018-12-19 complete Mental e medication 0 d Health- services, [facility] per [place] minutes [address] [place], [place], [id number] [phone] Comprehensiv 198700 SNOMED-CT () 2019-01-16 complete Mental e medication 0 d Health- services, [facility] per [place] minutes [address] [place], [place], [phone] Comprehensiv 967367 SNOMED-CT () 2019-02-15 complete Mental e medication 0 d Health- services, [facility] per [place] [address] [place], [place], [id number] [id number] Comprehensiv 352557 SNOMED-CT () 2018-10-24 complete Mental e medication 0 d Health- services, [facility] per [address] [place] [address] [place] [address], [phone] [phone] Comprehensiv 820546 SNOMED-CT () 2018-11-21 complete Mental e medication 0 d Health- services, [facility] per [address] [place] [address], [phone] Comprehensiv 834699 SNOMED-CT () 2019-03-15 complete Mental e medication 0 d Health- services, [facility] per [address] [place] [address], [id number] [phone] Comprehensiv 262767 SNOMED-CT () 2019-04-12 complete Mental e medication 0 d Health- services, [facility] per [address] [place] [address], [phone] Comprehensiv 546623 SNOMED-CT () 2019-05-10 complete Mental e medication 0 d Health- services, [facility] per [address] [place] [address], [id number] [phone] Office or 653730 SNOMED-CT () 2019-06-04 complete Mental other 7 d Health- outpatient [facility] visit for [address], established [phone] patient, [phone] which requires at least 2 of these 3 alvarado components: An expanded problem focused history; An expanded problem focused examination; Medical decision making of low Office or 695515 SNOMED-CT () 2018-11-28 complete Mental other 7 d Health- outpatient [facility] visit for [address], established [id number] patient, [phone] which requires at least 2 of these 3 alvarado components: An expanded problem focused history; An expanded problem focused examination; Medical decision making of low Office or 245613 SNOMED-CT () 2019-01-29 complete Mental other 7 d Health- outpatient [facility] visit for [address], established [id number] patient, [phone] which requires at least 2 of these 3 alvarado components: An expanded problem focused history; An expanded problem focused examination; Medical decision making of low Office or 203311 SNOMED-CT () 2019-05-03 complete Mental other 6 d Health- outpatient [facility] visit for [address] evaluation Vickey and Morales, management Ramona, of an [facility] established [phone] patient, [phone] which requires at least 2 of these 3 alvarado components: A problem focused history; A problem focused examination; Straightforw emilie medical decision making. Counselin Encounters/Encounter Diagnoses Encounter Name Encounter Diagnosis Diagnosis Name Diagnosis Date of Service Code Code CodeSystem Diagnosis Delivery Location Injectable H2010 15321605 Schizoaffective SNOMED-CT 2019-06-10 Behavioral Medication disorder, Health Administration Depressive type Clinic , , with Monitoring , & Education Vital Signs No Information Social History Element Description Description Start End Code CodeSystem AdditionalInfo Date Date SexAssignedAtBirth Female 1980-0 F AdministrativeGender 08-18 Hospital Discharge Instructions Reason For Referral Medical Equipment FDA Assessments
--- OUTSIDE RECORDS SUMMARY | 2019-07-05 15:44 | XMS REPORT | Continuity of Care Document ---
:1980 External Reference #:[id number] Author Name Andre Melton D.O. 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 Thin 33G Misc Pen [place] 1/2" use weekly with 15units E11.65 Linh [...] CPT Code Status Date Vaccine Lot # [id number] Given 11/04/2015 Adacel or Boostrix, TDaP [id number] Vital Signs Date Vital Result Comment 05/25/2019 [...] Hemoglobin A1c 11.9 finding Lipid Profile 12/15/2018 [facility] Triglycerides 296 mg/dL 1 (Trig/Chol/HDL) [phone] Cholesterol 205 mg/dL 2 HDL Cholesterol 39.2 mg/dL 3 LDL Cholesterol 107 mg/dL 4 CBC Auto Diff 12/15/2018 [facility] White Blood 8.4 10^3/uL Normal 3.5-10.8 [phone] Count Red Blood Count 4.81 10^6/uL Normal [...] Cells % 0.0 Comp Metabolic Panel 12/15/2018 [facility] Sodium 133 mmol/L Low 135- 145 [phone] Potassium 4.4 mmol/L Normal 3.5-5.0 Chloride 100 [...] Egfr 147.4 >60 5 Laboratory test 12/15/2018 [facility] TSH (Thyroid 1.91 mcIU/mL Normal 0.34-5.60 finding [phone] Stim Horm) Vitamin B12 426 pg/mL Normal 180-914 6 Magnesium 1.6 mg/dL Low 1.9-2.7 Alpha 1 Antitrypsin A1a 94 mg/dL Abnormal 100 - 190 7 Urinalysis Profile 12/10/2018 [facility] Urine Color Yellow 8 [phone] Urine Appearance Cloudy Urine Specific [place] 1.027 Normal 1.010-1.030 Urine pH 6.0 Normal 5-9 Urine Urobilinogen Negative Negative Urine Ketones Negative Negative Urine Protein Negative Negative Urine Leukocytes Negative Negative Urine Blood Negative Negative Urine Nitrite Negative Negative Urine Bilirubin Negative Negative Urine Glucose 3+(>=500 mg/dL) Abnormal Negative Urine Microalbumin 12/10/2018 [facility] Ur Microalbumin < 15.0 mg/L Random [phone] (mg/L) Urine Creatinine 21.19 mg/dL Urine Microalbumin/Creatinine [...] Deficient Range <145 7 Test Performed by: [facility] [address] [place] [address] 8 [id number] Unable to calculate due to low microalbumin Procedures Date Code Description Status 04/11/2019 323887439 Diabetic Foot Exam Completed 01/11/2019 51271 Electrocardiogram Complete Completed 03/21/2018 852323982 Diabetic Retinal Eye Exam Completed 02/16/2018 737618446 Diabetic Retinal Eye Exam Completed Medical Devices [...] Type 2 diabetes mellitus with hyperglycemia 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 [...] not specified Andre Melton D.O. 12/10/2018 Z79.4 group home (current) use of insulin Andre Melton D.O. [...] pm - Andre Melton D.O. at Main Xcwhcb3505/25/2019 - Andre Melton D.O.E11.9 Type 2 diabetes mellitus without qtrymrhvcrrgqJ03.210 Nicotine dependence, cigarettes, fhbkgeqynrbthO80.9 Schizophrenia, jhhpoafjhnyR02.65 Type 2 diabetes mellitus with hyperglycemiaFollow up:1 month DM w/ A1c Goals 05/25/2019 - Andre Melton D.O.E11.9 Type 2 diabetes mellitus without complicationsMost recent A1c was:11.1 Hemoglobin A1C (average glucose) < 7.0 - this is checked every 3 months. Avoid/limit carbohydrates: foods like Potatoes, Wheat (bread,pasta,cookies,crackers,pretzels,dough), Rice, [place], and Sugar Limit sweetened beverages. Check eyes yearly with a dialated exam with an manager work Check for diabetic kidney disease yearly with urine microalbumin test Check your feet by looking at all sides daily; once a year at least have them checked by a doctor. Functional Status Description No Information Available Mental Status Description No Information Available Referrals Description No Information Available
--- OUTSIDE RECORDS SUMMARY | 2019-07-05 15:44 | XMS REPORT | Continuity of Care Document ---
:1980 External Reference #:[id number] Author Name Andre Melton D.O. 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 Thin 33G Misc Pen [place] 1/2" use weekly with 15units E11.65 Linh [...] CPT Code Status Date Vaccine Lot # [id number] Given 11/04/2015 Adacel or Boostrix, TDaP [id number] Vital Signs Date Vital Result Comment 05/25/2019 [...] Hemoglobin A1c 11.9 finding Lipid Profile 12/15/2018 [facility] Triglycerides 296 mg/dL 1 (Trig/Chol/HDL) [phone] Cholesterol 205 mg/dL 2 HDL Cholesterol 39.2 mg/dL 3 LDL Cholesterol 107 mg/dL 4 CBC Auto Diff 12/15/2018 [facility] White Blood 8.4 10^3/uL Normal 3.5-10.8 [phone] Count Red Blood Count 4.81 10^6/uL Normal [...] Cells % 0.0 Comp Metabolic Panel 12/15/2018 [facility] Sodium 133 mmol/L Low 135- 145 [phone] Potassium 4.4 mmol/L Normal 3.5-5.0 Chloride 100 [...] Egfr 147.4 >60 5 Laboratory test 12/15/2018 [facility] TSH (Thyroid 1.91 mcIU/mL Normal 0.34-5.60 finding [phone] Stim Horm) Vitamin B12 426 pg/mL Normal 180-914 6 Magnesium 1.6 mg/dL Low 1.9-2.7 Alpha 1 Antitrypsin A1a 94 mg/dL Abnormal 100 - 190 7 Urinalysis Profile 12/10/2018 [facility] Urine Color Yellow 8 [phone] Urine Appearance Cloudy Urine Specific [place] 1.027 Normal 1.010-1.030 Urine pH 6.0 Normal 5-9 Urine Urobilinogen Negative Negative Urine Ketones Negative Negative Urine Protein Negative Negative Urine Leukocytes Negative Negative Urine Blood Negative Negative Urine Nitrite Negative Negative Urine Bilirubin Negative Negative Urine Glucose 3+(>=500 mg/dL) Abnormal Negative Urine Microalbumin 12/10/2018 [facility] Ur Microalbumin < 15.0 mg/L Random [phone] (mg/L) Urine Creatinine 21.19 mg/dL Urine Microalbumin/Creatinine [...] Deficient Range <145 7 Test Performed by: [facility] [address] [place] [address] 8 [id number] Unable to calculate due to low microalbumin Procedures Date Code Description Status 04/11/2019 126726107 Diabetic Foot Exam Completed 01/11/2019 10564 Electrocardiogram Complete Completed 03/21/2018 369801029 Diabetic Retinal Eye Exam Completed 02/16/2018 694195032 Diabetic Retinal Eye Exam Completed Medical Devices [...] Type 2 diabetes mellitus with hyperglycemia 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 [...] not specified Andre Melton D.O. 12/10/2018 Z79.4 prison (current) use of insulin Andre Melton D.O. [...] pm - Andre Melton D.O. at Main Lwuyhe2005/25/2019 - Andre Melton D.O.E11.9 Type 2 diabetes mellitus without dggpognnugoreF66.210 Nicotine dependence, cigarettes, epzsnjaotrymrH47.9 Schizophrenia, ztvelpjxqmxV38.65 Type 2 diabetes mellitus with hyperglycemiaFollow up:1 month DM w/ A1c Goals 05/25/2019 - Andre Melton D.O.E11.9 Type 2 diabetes mellitus without complicationsMost recent A1c was:11.1 Hemoglobin A1C (average glucose) < 7.0 - this is checked every 3 months. Avoid/limit carbohydrates: foods like Potatoes, Wheat (bread,pasta,cookies,crackers,pretzels,dough), Rice, [place], and Sugar Limit sweetened beverages. Check eyes yearly with a dialated exam with an embalmer/funeral director Check for diabetic kidney disease yearly with urine microalbumin test Check your feet by looking at all sides daily; once a year at least have them checked by a doctor. Functional Status Description No Information Available Mental Status Description No Information Available Referrals Description No Information Available
--- OUTSIDE RECORDS SUMMARY | 2019-07-05 15:44 | XMS REPORT | Continuity of Care Document ---
:1980 External Reference #:[id number] Author Name Andre Melton D.O. 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 Thin 33G Misc Pen [place] 1/2" use weekly with 15units E11.65 Linh [...] CPT Code Status Date Vaccine Lot # [id number] Given 11/04/2015 Adacel or Boostrix, TDaP [id number] Vital Signs Date Vital Result Comment 05/25/2019 [...] Hemoglobin A1c 11.9 finding Lipid Profile 12/15/2018 [facility] Triglycerides 296 mg/dL 1 (Trig/Chol/HDL) [phone] Cholesterol 205 mg/dL 2 HDL Cholesterol 39.2 mg/dL 3 LDL Cholesterol 107 mg/dL 4 CBC Auto Diff 12/15/2018 [facility] White Blood 8.4 10^3/uL Normal 3.5-10.8 [phone] Count Red Blood Count 4.81 10^6/uL Normal [...] Cells % 0.0 Comp Metabolic Panel 12/15/2018 [facility] Sodium 133 mmol/L Low 135- 145 [phone] Potassium 4.4 mmol/L Normal 3.5-5.0 Chloride 100 [...] Egfr 147.4 >60 5 Laboratory test 12/15/2018 [facility] TSH (Thyroid 1.91 mcIU/mL Normal 0.34-5.60 finding [phone] Stim Horm) Vitamin B12 426 pg/mL Normal 180-914 6 Magnesium 1.6 mg/dL Low 1.9-2.7 Alpha 1 Antitrypsin A1a 94 mg/dL Abnormal 100 - 190 7 Urinalysis Profile 12/10/2018 [facility] Urine Color Yellow 8 [phone] Urine Appearance Cloudy Urine Specific [place] 1.027 Normal 1.010-1.030 Urine pH 6.0 Normal 5-9 Urine Urobilinogen Negative Negative Urine Ketones Negative Negative Urine Protein Negative Negative Urine Leukocytes Negative Negative Urine Blood Negative Negative Urine Nitrite Negative Negative Urine Bilirubin Negative Negative Urine Glucose 3+(>=500 mg/dL) Abnormal Negative Urine Microalbumin 12/10/2018 [facility] Ur Microalbumin < 15.0 mg/L Random [phone] (mg/L) Urine Creatinine 21.19 mg/dL Urine Microalbumin/Creatinine [...] Deficient Range <145 7 Test Performed by: 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 [...] not specified Andre Melton D.O. 12/10/2018 Z79.4 [facility] (current) use of insulin Andre Melton D.O. [...] pm - Andre Melton D.O. at Main Hkgheq6601/11/2019 - Andre Melton D.O.Z84.81 Family history of carrier of genetic hzobqakT24.210 Nicotine dependence, cigarettes, vgvjtkuudkactU37.9 Schizophrenia, bkhrgnmkmmaM21.14 Patient's other noncompliance with medication idqmmexY27.551 Pain in right hipM79.661 Pain in right lower legE11.9 Type 2 diabetes mellitus without complicationsFollow up:1 month DME11.65 Type 2 diabetes mellitus with hyperglycemia Functional Status Description No Information Available Mental Status Description No Information Available Referrals Description No Information Available
[2019-07-05 15:52] VITALS: BP 145/81
--- NOTE | 2019-07-05 17:55 | UC ---
Skin Complaint HPI - HPI Summary HPI Summary: PATIENT COMPLAINS OF SEVERAL MONTHS OF DRY, ITCHY SKIN ON HER ABDOMEN. NO FEVER. NO NEW EXPOSURES. HAS DIABETES THAT IS NOT WELL CONTROLLED. ALSO COMES IN BECAUSE SHE IS RECOVERING FROM A VIRAL URI AND WHEN SHE LOOKED AT HER THROAT THOUGHT THAT SHE SAW SOME UNUSUAL LOOKING BUMPS ON THE BACK OF HER TONGUE. - History of Current Complaint Chief Complaint: UCGeneralIllness Time Seen by Provider: 07/05/19 17:04 Stated Complaint: RASH AND SORE THROAT Hx Obtained From: Patient Hx Last Menstrual Period: 3 weeks ago Onset/Duration: Gradual Onset, Lasting Weeks, Still Present Timing: Constant Onset Severity: Mild Current Severity: Mild Pain Intensity: 0 Pain Scale Used: 0-10 Numeric Character: Pruritus Aggravating Factor(s): Touch Alleviating Factor(s): Nothing Associated Signs & Symptoms: Positive: Rash - Allergy/Home Medications Allergies/Adverse Reactions: Allergies Allergy/AdvReac Type Severity Reaction Status Date / Time divalproex sodium Allergy Altered Verified 07/05/19 15:52 [From Depakote] Mental Status haloperidol [From Haldol] Allergy Hallucinati Verified 07/05/19 15:52 ons metformin Allergy vomiting, Verified 07/05/19 15:52 feels like her belly button will fall out Home Medications: Home Medications Acarbose [Precose] 100 mg PO BID 07/05/19 [History Confirmed 07/05/19] Alogliptin Benzoate [Alogliptin] 25 mg PO DAILY 07/05/19 [History Confirmed ] Cholecalciferol (Vitamin D3) [Vitamin D3] 5,000 unit PO DAILY 07/05/19 [History Confirmed 07/05/19] Magnesium Oxide [Magnesium] 500 mg PO DAILY 07/05/19 [History Confirmed 07/05/19 ] Pioglitazone TAB* [Actos TAB*] 45 mg PO DAILY 07/05/19 [History Confirmed ] PMH/Surg Hx/FS Hx/Imm Hx Endocrine History: Diabetes Respiratory History: Asthma Psychological History: Schizophrenia - Surgical History Surgical History: Yes Surgery Procedure, Year, and Place: D&C; elective ab; tubal ligation - Family History Known Family History: Positive: Hypertension - Social History Alcohol Use: None Substance Use Type: None Smoking Status (MU): Current Every Day Smoker Type: Cigarettes Amount Used/How Often: 1 PPD Length of Time of Smoking/Using Tobacco: since age 15 Household Exposure Type: Cigarettes - Immunization History Most Recent Influenza Vaccination: unknown and refuses. Most Recent Tetanus Shot: unknown to pt. Most Recent Pneumonia Vaccination: n/a pt refused. Review of Systems All Other Systems Reviewed And Are Negative: Yes Constitutional: Positive: Negative Skin: Positive: Rash ENT: Positive: Sore Throat Respiratory: Positive: Cough Cardiovascular: Positive: Negative Gastrointestinal: Positive: Negative Physical Exam Triage Information Reviewed: Yes Appearance: Well-Appearing, No Pain Distress, Well-Nourished Vital Signs: Initial Vital Signs Temp 97.9 F 07/05/19 15:49 Pulse 105 07/05/19 15:49 Resp 16 07/05/19 15:49 BP 145/81 07/05/19 15:49 Pulse Ox 98 07/05/19 15:49 Vital Signs Reviewed: Yes Eyes: Positive: Conjunctiva Clear ENT: Positive: Hearing grossly normal, Pharynx normal, TMs normal. Negative: Tonsillar swelling, Tonsillar exudate Neck: Positive: Supple, Nontender, No Lymphadenopathy Respiratory Exam: Normal Cardiovascular Exam: Normal Abdomen Description: Positive: Soft Musculoskeletal: Positive: No Edema Neurological: Positive: Alert Psychological: Positive: Age Appropriate Behavior Skin: Positive: Rashes - SCATTERED PATCHES OF DRY, FLAKY SKIN ON ABDOMEN WITH MILD EXCORATION. NOT IN INTERTRIGINOUS AREAS Course/Dx - Course Course Of Treatment: THE APPEARANCE OF PATIENT'S RASH IS CONSISTENT WITH ECZEMA. FEATURES NOT AT ALL CONSISTENT WITH ANYTHING FUNGAL. HAVE ADVISED USING TOPICAL HYDROCORTISONE CREAM SPARINGLY TWICE DAILY UNTIL THE RASH IS GONE. I HAVE ALSO ENCOURAGED HER TO USE A HYPOALLERGENIC DAILY MOISTURIZING LOTION EVERY DAY TO HELP KEEP HER SCAN ELASTIC AND HYDRATED. IF THE RASH DOES NOT RESOLVE WITH THIS TREATMENT IN 1-2 WEEKS SHE WILL FOLLOW-UP WITH DERMATOLOGY. THE BUMPS THAT SHE SAW ON THE BACK OF HER TONGUE ARE HER CIRCUMVALLATE PAPILLAE. PHYSICAL EXAM OF THE OROPHARYNX IS UNREMARKABLE. - Diagnoses Provider Diagnosis: Eczema Discharge ED - Sign-Out/Discharge Documenting (check all that apply): Patient Departure All imaging exams completed and their final reports reviewed: No Studies - Discharge Plan Condition: Stable Disposition: HOME Prescriptions: Hydrocortisone 1% CREAM* 1 applic TOPICAL BID PRN #1 tube PRN Reason: Rash Patient Education Materials: Eczema (ED) Referrals: Andre Melton DO [Primary Care Provider] - If Needed Additional Instructions: YOUR RASH IS CONSISTENT WITH ECZEMA/DRY SKIN. BE SURE TO MOISTURIZE YOUR WHOLE BODY WITHIN UNSCENTED, HYPOALLERGENIC LOTION EVERY DAY. THEN APPLY TOPICAL HYDROCORTISONE CREAM SPARINGLY TO THE AFFECTED AREA TWICE DAILY UNTIL THE RASH IS GONE. IF IT PERSISTS FOR MORE THAN ONE TO 2 WEEKS SEEK REEVALUATION BY DERMATOLOGY. THE BUMPS THAT YOU ARE SEEING ON THE BACK OF YOUR TONGUE ARE YOUR CIRCUMVALLATE TASTE BUDS. ON EXAM YOUR THROAT AND TONGUE LOOK NORMAL. STREP TEST NEGATIVE. DERMATOLOGY IN [place] DR. LILLIE MONIQUE (DOES NOT SEE PTS ON MONDAYS OR TUESDAYS. DOES NOT TAKE MEDICAID) [facility], [facility] [address] [facility] [facility] [address]; [address] [place] [address] Dr. Kandy Friasister Address: [address] [place] [address] [address] [place] [address] DR. CHOLO MURPHY, DR. ALEXIA NICHOLE [facility] D[facility] [address] [facility] [address], [place] [address] [place] [address] [facility] [place] LOCATION [address] [place] [address] [address] IN [place] Dr. Michelle Howard DERMATOLOGY IN [place] DR. CHOLO MURPHY [phone] - Billing Disposition and Condition Condition: STABLE Disposition: Home
== END 2019-07-05 17:40 | disposition home or self-care (01) ==
LOC: UCEAST 15:38
DX: L30.9 Dermatitis, unspecified (principal); E11.9 Type 2 diabetes mellitus without complications; J45.909 Unspecified asthma, uncomplicated; F17.210 Nicotine dependence, cigarettes, uncomplicated; Z79.84 Long term (current) use of oral hypoglycemic drugs; Z88.8 Allergy status to other drugs, medicaments and biological substances
CPT/HCPCS: 87651; 99212; G0463

== ENCOUNTER 2019-08-14 10:45 | Emergency (ER) | payer OTHER ==
--- OUTSIDE RECORDS SUMMARY | 2019-08-14 10:52 | XMS REPORT ---
:1980 Author Organization [facility] Care Team Providers Name Role Phone DINH MAIER Primary Care Physician Unavailable Allergies, Adverse Reactions, Alerts Allergy Code CodeSystem Reaction Severity Criticality Status Start Substance Date Moderate Medications Medication Medication Medication Start Stop Route Dose Status Fill Code CodeSystem Date Date Instructions Abilify 4843331 RxNorm 2019-01-0 IM 300 mg active Inject 300 mg Maintena 04 300 intramuscularly suspens every four weeks ion,ext for 30 day(s) ended rel syring every four weeks nicotine 227366 RxNorm 2018-11 bucl 4 mg 1 active Chew 1 piece (polacrilex) 02-26 gum as needed for 30 day(s) Problems Problem Name Code CodeSystem Alternate Alternate Start End Status Narrative Code CodeSystem Date Date Nicotine 25012342 SNOMED-CT Active dependence, 3 unspecified, uncomplicated Schizoaffective 15936329 SNOMED-CT 0 Active disorder, 3- Depressive type Relevant diagnostic tests/laboratory data Narrative No Information Procedures Procedure Code CodeSystem Target Date of Status Service Device Device Device Name Site Procedure Delivery Code Name UID Location Comprehensiv 878697 SNOMED-CT () 2018-12-19 complete Mental e medication 0 d Health- services, [place] per [address] [place], [place], [id number] [phone] Comprehensiv 094181 SNOMED-CT () 2019-01-16 complete Mental e medication 0 d Health- services, [place] per [address] [place], [place], [id number] [phone] Comprehensiv 310119 SNOMED-CT () 2019-02-15 complete Mental e medication 0 d Health- services, [place] per [address] [place], [place], [id number] [phone] Comprehensiv 224234 SNOMED-CT () 2018-10-24 complete Mental e medication 0 d Health- services, [place] [address] [place] [address], [id number] [phone] Comprehensiv 261409 SNOMED-CT () 2018-11-21 complete Mental e medication 0 d Health- services, Jann[place] per [address] [place] [address], [id number] [phone] Comprehensiv 850801 SNOMED-CT () 2019-03-15 complete Mental e medication 0 d Health- services, [place] per [address] [place] [address], [id number] [phone] Comprehensiv 790419 SNOMED-CT () 2019-04-12 complete Mental e medication 0 d Health- services, Jann[place] per [address] [place] [address], [id number] [phone] Comprehensiv 166140 SNOMED-CT () 2019-05-10 complete Mental e medication 0 d Health- services, [place] per [address] [place] [address], [id number] [phone] Comprehensiv 882510 SNOMED-CT () 2019-06-10 complete Mental e medication 0 d Health- services, Keith per [address] [place] [address], [id number] [phone] Office or 270247 SNOMED-CT () 2019-06-04 complete Mental other 7 d Health- outpatient Janneth visit for [address], established [id number] patient, [id number] which requires at least 2 of these 3 alvarado components: An expanded problem focused history; An expanded problem focused examination; Medical decision making of low Office or 659023 SNOMED-CT () 2018-11-28 complete Mental other 7 d Health- outpatient Janneth visit for [address], established [phone] patient, [id number] which requires at least 2 of these 3 alvarado components: An expanded problem focused history; An expanded problem focused examination; Medical decision making of low Office or 473065 SNOMED-CT () 2019-01-29 complete Mental other 7 d Health- outpatient Keith visit for [address], established [id number] patient, [id number] which requires at least 2 of these 3 alvarado components: An expanded problem focused history; An expanded problem focused examination; Medical decision making of low Office or 661320 SNOMED-CT () 2019-05-03 complete Mental other 6 d Health- outpatient Janneth visit for [address], established [id number] patient, [id number] which requires at least 2 of these 3 alvarado components: A problem focused history; A problem focused examination; Straightforw emilie medical decision making. Counselin Office or 376514 SNOMED-CT () 2019-06-26 complete Mental other 6 d Health- outpatient Keith visit for [address], established [id number] patient, [id number] which requires at least 2 of these 3 alvarado components: A problem focused history; A problem focused examination; Straightforw emilie medical decision making. Counselin Encounters/Encounter Diagnoses Encounter Encounter Diagnosis Diagnosis Name Diagnosis Date of Service Name Code Code CodeSystem Diagnosis Delivery Location - [id number] Schizoaffective SNOMED-CT 2019-06-26 Behavioral Established disorder, Health patient 10 Depressive type Clinic [address] [place], [place], [phone] Vital Signs No Information Social History Element Description Description Start End Code CodeSystem AdditionalInfo Date Date SexAssignedAtBirth Female 1980-0 F AdministrativeGender 08-18 Hospital Discharge Instructions Reason For Referral Medical Equipment FDA Assessments
[2019-08-14 11:04] VITALS: BP 119/70
[2019-08-14 11:35] LABS: Influenza A Molecular NEGATIVE (Negative); Influenza B Molecular NEGATIVE (Negative)
--- NOTE | 2019-08-14 11:56 | UC ---
FLU HPI - HPI Summary HPI Summary: 38-year-old female presents with 5 day history of general malaise, body aches, subjective fever, chills, nasal congestion, sore throat, and a nonproductive cough. States that on the first day of symptoms she also had couple episodes of vomiting and diarrhea. Yesterday she developed some right lower quadrant pain when she coughs. States pain is sharp and nonradiating. It improves if she presses on the area. States pain is better today been yesterday. Denies ear pain, dysphagia, chest pain, shortness of breath, dysuria, frequency, urgency, or hematuria. - History of Current Complaint Chief Complaint: UCGeneralIllness Stated Complaint: FLU LIKE SYMPTOMS Time Seen by Provider: 08/14/19 11:05 Hx Obtained From: Patient Hx Last Menstrual Period: 07/17/19 Pain Intensity: 7 - Allergy/Home Medications Allergies/Adverse Reactions: Allergies Allergy/AdvReac Type Severity Reaction Status Date / Time divalproex sodium Allergy Altered Verified 08/14/19 10:55 [From Depakote] Mental Status haloperidol [From Haldol] Allergy Hallucinati Verified 08/14/19 10:55 ons metformin Allergy vomiting, Verified 08/14/19 10:55 feels like her belly button will fall out PMH/Surg Hx/FS Hx/Imm Hx Endocrine History: Diabetes Respiratory History: Asthma Psychological History: Schizophrenia - Surgical History Surgical History: Yes Surgery Procedure, Year, and Place: D&C; elective ab; tubal ligation - Family History Known Family History: Positive: Hypertension - Social History Occupation: Unemployed Lives: With Family Alcohol Use: None Substance Use Type: None Smoking Status (MU): Current Every Day Smoker Type: Cigarettes Amount Used/How Often: 1 PPD Length of Time of Smoking/Using Tobacco: since age 15 Household Exposure Type: Cigarettes - Immunization History Most Recent Influenza Vaccination: unknown and refuses. Most Recent Tetanus Shot: unknown to pt. Most Recent Pneumonia Vaccination: n/a pt refused. Review of Systems All Other Systems Reviewed And Are Negative: Yes Constitutional: Positive: Fever - Subjective, Chills, Fatigue Skin: Negative: Rash Eyes: Negative: Drainage, Eye Redness ENT: Positive: Sore Throat, Nasal Discharge, Sinus Congestion, Sinus Pain/ Tenderness. Negative: Ear Ache Respiratory: Positive: Cough. Negative: Shortness Of Breath Cardiovascular: Negative: Palpitations, Chest Pain Gastrointestinal: Positive: Abdominal Pain, Vomiting, Diarrhea, Nausea Genitourinary: Negative: Dysuria, Hematuria, Frequency, Urgency Musculoskeletal: Positive: Myalgia Neurological: Positive: Negative Is Patient Immunocompromised?: No Physical Exam - Summary Physical Exam Summary: GENERAL APPEARANCE: Well developed, well nourished, alert and cooperative, and appears to be in no acute distress. EYES: Conjunctiva clear. No drainage. EARS: External auditory canals and tympanic membranes clear, hearing grossly intact. NOSE: Mild nasal congestion. No nasal discharge. THROAT: Pharyngeal erythema. No tonsilar inflammation, swelling, exudate, or lesions. Uvula midline. NECK: Neck supple, non-tender without lymphadenopathy. CARDIAC: Normal S1 and S2. No S3, S4 or murmurs. Rhythm is regular. There is no peripheral edema, cyanosis or pallor. Extremities are warm and well perfused. Capillary refill is less than 2 seconds. Peripheral pulses intact. LUNGS: Clear to auscultation without rales, rhonchi, wheezing or diminished breath sounds. Dry nonproductive cough. ABDOMEN: Positive bowel sounds. Soft, nondistended. Mild RLQ pain without guarding or rebound. No masses or hepatosplenomegally. No CVA tenderness. MUSKULOSKELETAL: ROM intact to all extremities. No joint erythema or tenderness. Normal muscular development. Normal gait. SKIN: Skin normal color, texture and turgor with no lesions or eruptions. Triage Information Reviewed: Yes Vital Signs: Initial Vital Signs Temp 98.3 F 08/14/19 10:58 Pulse 100 08/14/19 10:58 Resp 16 08/14/19 10:58 BP 119/70 08/14/19 10:58 Pulse Ox 100 08/14/19 10:58 Vital Signs Reviewed: Yes Flu Course/Dx - Course Course Of Treatment: 38-year-old female presents with 5 day history of general malaise, body aches, subjective fever, chills, nasal congestion, sore throat, and a nonproductive cough. States that on the first day of symptoms she also had couple episodes of vomiting and diarrhea. Yesterday she developed some right lower quadrant pain when she coughs. States pain is sharp and nonradiating. It improves if she presses on the area. States pain is better today been yesterday. Denies ear pain, dysphagia, chest pain, shortness of breath, dysuria, frequency, urgency, or hematuria. Afebrile. Vital signs stable. On exam patient had mild nasal congestion, pharyngeal erythema without tonsillar swelling or exudate , no cervical lymphadenopathy, clear bilateral breath sounds, dry nonproductive cough, soft nondistended abdomen, mild right lower quadrant tenderness without rebound or guarding, and otherwise unremarkable exam. Rapid flu was negative. Rapid strep was negative. Reviewed results with the patient. We discussed that her symptoms were likely a viral upper respiratory infection I'm recommending symptomatic treatment at this time. We also discussed that I have a low suspicion for an emergent or urgent cause to her abdominal pain especially with the pain improving at this time however she is aware that I cannot fully rule out the possibility of appendicitis at this time. We discussed options for evaluation including emergency room evaluation versus watchful waiting and patient is electing for the latter. She is to follow-up with her primary care provider in 2-3 days if symptoms are not improving. Anticipatory guidance and warning symptoms were reviewed with the patient. Verbalizes understanding and agrees with plan of care. - Differential Dx/Diagnosis Differential Diagnosis/HQI/PQRI: Influenza, Pneumonia, Upper Respiratory Infection, Other - Pharyngitis, appendicitis Provider Diagnosis: Viral URI with cough, Right lower quadrant abdominal pain Discharge ED - Sign-Out/Discharge Documenting (check all that apply): Patient Departure All imaging exams completed and their final reports reviewed: No Studies - Discharge Plan Condition: Stable Disposition: HOME Prescriptions: Benzonatate CAP* [Tessalon 100 MG CAP*] 100 mg PO TID PRN #21 cap PRN Reason: Cough Fluticasone NASAL SPRAY 50MCG* [Flonase NASAL SPRAY 50MCG*] 2 spray BOTH NARES DAILY #1 btl Patient Education Materials: Upper Respiratory Infection (ED), Acute Abdominal Pain (ED) Referrals: Andre Melton DO [Primary Care Provider] - 2 Days (If symptoms persist.) Additional Instructions: The rapid flu and rapid strep tests performed in the clinic today were negative. Your history and exam are consistent with a viral upper respiratory infection. Viral infections do not respond to antibiotics and are limited to the treatment of symptoms. Viral infections typically run their course in 7-10 days. Drink plenty of fluids to avoid dehydration especially if you are running any fever. Start fluticasone nasal spray 2 sprays each nostril once a day for congestion. You may also use an over the counter decongestant such as Sudafed according to directions to help with congestion. Take Tesalon Perles 1 cap every 8 hours as needed for cough. Take over the counter acetaminophen (Tylenol) or ibuprofen (Advil, Motrin) according to directions as needed for pain or fever. Use salt water gargles several times a day if you have a sore throat. You may also use Chloraseptic spray or Cepacol lonzenges according to directions which contain a numbing medication and can provide some temporary relief from your sore throat. I am unsure of the exact cause of your abdominal pain. I have a low suspicion for appendicitis although I cannot fully rule this out. Since the pain is improved I feel that watchful waiting is appropriate but should you have any change or worsening of symptoms especially severe abdominal pain, persist vomiting, blood in your vomit or bowel movement you should go to the emergency room immediately for evaluation. Follow up with your primary care provider in 2-3 days if symptoms persist. Seek immediate medical attention in the emergency room if you have fever greater than 100.5 F despite taking acetaminophen or ibuprofen, have chest pain , difficulty breathing, are unable to swallow, or have any worsening of symptoms. - Billing Disposition and Condition Condition: STABLE Disposition: Home
== END 2019-08-14 12:30 | disposition home or self-care (01) ==
LOC: UCEAST 10:45
DX: J06.9 Acute upper respiratory infection, unspecified (principal); R05 Cough; R10.31 Right lower quadrant pain; J02.9 Acute pharyngitis, unspecified; R11.2 Nausea with vomiting, unspecified; R19.7 Diarrhea, unspecified; E11.9 Type 2 diabetes mellitus without complications; F20.9 Schizophrenia, unspecified; J45.909 Unspecified asthma, uncomplicated; F17.210 Nicotine dependence, cigarettes, uncomplicated; Z88.8 Allergy status to other drugs, medicaments and biological substances
CPT/HCPCS: 87651; 99212; G0463

== ENCOUNTER 2019-09-23 09:34 | Emergency (ER) | payer OTHER ==
--- OUTSIDE RECORDS SUMMARY | 2019-09-23 09:40 | XMS REPORT | Continuity of Care Document ---
:1980 External Reference #:[id number] Author Name Andre Melton D.O. 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 Tablets 2-3 times per day Best at the start of a meal for type 2 diabetes E11.9 Olena Microlet 2 as directed Unknown 06/30/2019 Lancets Alogliptin Benzoate take 1 tablet by 90tabs E11.9 Andre Melton 2018 25mg mouth daily for type D.O. Tablets 2 diabetes E11.65 Pioglitazone HCL take 1 tablet by 90tabs E11.9 Julitopaulino Andre, 05/14/2019 45mg Tablets mouth once daily D.O. for blood sugar control Magnesium 1 daily 90caps E11.9 JulitopaulinoAndre, 04/11/2019 500mg Capsules D.O. E83.42 Vitamin D3 1 by mouth every 90caps E55.9 JulitopaulinoAndre, 04/11/2019 5000Unit day D.O. Capsules Alcohol Swabs use as needed when 200units E11.65 Odin Meltonon, 2018 70% Pads checking blood D.O. sugars and for injections of insulin Multivitamin Adult 1 by mouth every Unknown 03/09/2017 day Tablets Abilify 300mg inj monthly Unknown at mental health History Medications Nicotine Dissolve 1 324units F17.210 Andre Melton, 07/01/2019 - Polacrilex lozenge by mouth D.O. 08/15/2019 4mg 20 times per day Lozenges as needed for smoking cessation Januvia take 1 tablet by 90tabs E11.9 Linh Andre, 05/25/2019 - 100mg mouth daily for D.O. 06/17/2019 Tablets type 2 diabetes E11.65 Pioglitazone HCL take 1 tablet by 30tabs E11.9 Odin Meltonon, 04/24/2019 - 30mg mouth daily for D.O. 05/14/2019 Tablets type 2 diabetes Pioglitazone HCL take 1 tablet by 90tabs Andre Melton, 04/11/2019 - 15mg mouth daily for D.O. 04/24/2019 Tablets type 2 diabetes Lancets Micro Thin use 1-4 times 100units E11.65 Andre Melton, 2018 - 33G daily as directed D.O. 06/30/2019 Thin 33G Misc Pen [place] 1/2" use weekly with 15units E11.65 Andre Melton, 2018 - 29G Trulicity D.O. 06/30/2019 X 12mm Misc Trulicity subq: initial: 4ml Andre Melton, 02/18/2019 - 0.75 mg once D.O. 04/10/2019 0.75mg/0.5ML weekly Solution Pen-Inject Immunizations CPT Code Status Date Vaccine Lot # [id number] Given 11/04/2015 Adacel or Boostrix, TDaP [id number] Refused 08/16/2019 Influenza Virus Vaccine, Quadrivalent, Split, Preservative Free Vital Signs Date Vital Result Comment 08/16/2019 4:09pm BP Systolic 142 mmHg BP Diastolic 80 mmHg Body Temperature 98.2 F 07/01/2019 4:38pm BP Systolic 118 mmHg BP Diastolic 72 mmHg Body Temperature 97.8 F Weight 182.50 lb Results Test Acquired Date Facility Test Result H/L Range Note Laboratory test 08/16/2019 In House Test negative finding Urine Laboratory test 08/14/2019 [facility] Rapid Strep Negative Negative 1 finding [phone] Molecular Rapid Influenza 08/14/2019 [facility] Influenza A NEGATIVE Negative A & B Molecular [phone] Molecular Influenza B Molecular NEGATIVE Negative 2 Laboratory test 07/05/2019 [facility] Rapid Strep Negative Negative 3 finding [phone] Molecular Laboratory test 07/01/2019 In House Culture Throat negative finding Culture Throat Rapid Screen negative Laboratory test finding 07/01/2019 In House Hemoglobin A1c 10.2 Laboratory test finding 04/11/2019 In House Hemoglobin A1c 11.1 1 Squad Leader: [id number] Suboptimal collection technique may reduce sensitivity of test. Refer to the [facility] Test Catalog for collection information: [email or web address] As with all diagnostic procedures, the laboratory results obtained should be used in conjunction with other clinical information available to the physician, including confirmation by another method, as applicable. 2 Squad Leader: [id number] 3 Squad Leader: [id number] Suboptimal collection technique may reduce sensitivity of test. Refer to the [facility] Test Catalog for collection information: [email or web address] As with all diagnostic procedures, the laboratory results obtained should be used in conjunction with other clinical information available to the physician, including confirmation by another method, as applicable. Procedures Date Code Description Status 04/11/2019 [id number] Diabetic Foot Exam Completed 03/21/2018 124767985 Diabetic Retinal Eye Exam Completed 02/16/2018 843213373 Diabetic Retinal Eye Exam Completed Medical Devices Description No Information Available Encounters Type Date Location Provider Dx Diagnosis Office Visit 08/16/2019 3:30p Main Office Andre Melton D.O. 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 08/16/2019 R10.31 Right lower quadrant pain Andre Melton D.O. 08/16/2019 E11.9 Type 2 diabetes mellitus without Sopchak, Andre, D.O. complications 08/16/2019 F17.210 Nicotine dependence, cigarettes, Sopchak, Andre, D.O. uncomplicated 08/16/2019 E11.65 Type 2 diabetes mellitus with hyperglycemia Sopchak, Andre , D.O. 08/16/2019 F20.9 Schizophrenia, unspecified Sopchak, Andre, D.O. 08/16/2019 R10.9 Unspecified abdominal pain Sopchak, Andre, D.O. 07/01/2019 E11.9 Type 2 diabetes mellitus without Sopchak, Andre, D.O. complications 07/01/2019 F17.210 Nicotine dependence, cigarettes, Sopchak, Andre, D.O. uncomplicated 07/01/2019 E11.65 Type 2 diabetes mellitus with hyperglycemia Sopchak, Andre , D.O. 07/01/2019 J02.9 Acute pharyngitis, unspecified Sopchak, Andre, D.O. 07/01/2019 J02.9 Acute pharyngitis, unspecified Sopchak, Andre, D.O. 05/25/2019 E11.9 Type 2 diabetes mellitus without Sopchak, Andre, D.O. complications 05/25/2019 F17.210 Nicotine dependence, cigarettes, Sopchak, Andre, D.O. uncomplicated 05/25/2019 F20.9 Schizophrenia, unspecified Sopchak, Andre, D.O. 05/25/2019 E11.65 Type 2 diabetes mellitus with hyperglycemia Sopchak, Andre , D.O. 04/11/2019 Z68.28 Body mass index (BMI) 28.0-28.9, adult Sopludak, Andre, D.O. 04/11/2019 E11.9 Type 2 diabetes mellitus without Sopchak, Andre, D.O. complications 04/11/2019 Z84.81 Family history of carrier of genetic disease Sopludak Andre, D.O. 04/11/2019 F17.210 Nicotine dependence, cigarettes, Sopchak, Andre, D.O. uncomplicated 04/11/2019 F20.9 Schizophrenia, unspecified Sopchak, Andre, D.O. 04/11/2019 Z91.14 Patient's other noncompliance with medication Sopludak, Andre, D.O. regimen 04/11/2019 Z91.11 Patient's noncompliance with dietary regimen Andre Melton D.O. 02/18/2019 Z84.81 Family history of carrier of genetic disease Andre Melton D.O. 02/18/2019 F17.210 Nicotine dependence, cigarettes, Andre Melton D.O. uncomplicated 02/18/2019 F20.9 Schizophrenia, unspecified Andre Melton D.O. 02/18/2019 Z91.14 Patient's other noncompliance with medication Andre Melton D.O. regimen 02/18/2019 E11.9 Type 2 diabetes mellitus without Andre Melton D.O. complications 02/18/2019 E11.65 Type 2 diabetes mellitus with hyperglycemia Andre Melton D.O. 02/18/2019 Z79.4 penitentiary (current) use of insulin Andre Melton D.O. Plan of Treatment Future Appointment(s):09/30/2019 4:30 pm - Andre Melton D.O. at Main [id number]/16/2019 - Andre Melton D.O.R05 VuilyS16.31 Right lower quadrant painE11.9 Type 2 diabetes mellitus without complicationsFollow up:as hmmefzedyW07.210 Nicotine dependence, cigarettes, fuvseasvygqqsL42.65 Type 2 diabetes mellitus with iflwxjijdmoobP29.9 Schizophrenia, vmcvykkqjusG78.9 Unspecified abdominal pain Goals 08/16/2019 - Andre Melton D.O.E11.9 Type 2 diabetes mellitus without complicationsHemoglobin A1C (average glucose) < 7.0 - this is checked every 3 months. Avoid/limit carbohydrates: foods like Potatoes, Wheat (bread,pasta, cookies,crackers,pretzels,dough), Rice, [place], and Sugar Limit sweetened beverages. Check eyes yearly with a dialated exam with an product management internship Check fordiabetic kidney disease yearly with urine microalbumin test Check your feet by looking at all sidesdaily; once a year at least have them checked by a doctor. Functional Status Description No Information Available Mental Status Description No Information Available Referrals Description No Information Available
[2019-09-23 10:01] VITALS: BP 111/71
[2019-09-23 10:30] LABS: Influenza A Molecular POSITIVE (Negative)
--- NOTE | 2019-09-23 11:19 | UC ---
FLU HPI - HPI Summary HPI Summary: 39 year old female comes in with a chief complaint of influenza upper respiratory tract infection-like symptoms for 8 days. Initially patient had a runny nose sore throat and some chest congestion. Sore throat was mild to almost nonexistent. In the last 2 days started feeling a lot worse with body aches headache fevers and chills. She's also been having some diarrhea. - History of Current Complaint Chief Complaint: UCGeneralIllness Stated Complaint: COUGH,FEVER Time Seen by Provider: 09/23/19 10:38 Hx Last Menstrual Period: 08/28/19 Pain Intensity: 1 - Allergy/Home Medications Allergies/Adverse Reactions: Allergies Allergy/AdvReac Type Severity Reaction Status Date / Time divalproex sodium Allergy Altered Verified 09/23/19 09:52 [From Depakote] Mental Status haloperidol [From Haldol] Allergy Hallucinati Verified 09/23/19 09:52 ons metformin Allergy vomiting, Verified 09/23/19 09:52 feels like her belly button will fall out Home Medications: Home Medications Aripiprazole Maintena (NF) [Abilify Maintena (NF)] 400 mg IM Q28D 07/12/17 [ History Confirmed 09/23/19] Acarbose [Precose] 100 mg PO BID 07/05/19 [History Confirmed 09/23/19] Alogliptin Benzoate [Alogliptin] 25 mg PO DAILY 07/05/19 [History Confirmed 09/12] Cholecalciferol (Vitamin D3) [Vitamin D3] 5,000 unit PO DAILY 07/05/19 [History Confirmed 09/23/19] Hydrocortisone 1% CREAM* 1 applic TOPICAL BID PRN #1 tube 07/05/19 [Rx Confirmed 09/23/19] Magnesium Oxide [Magnesium] 500 mg PO DAILY 07/05/19 [History Confirmed 09/23/19 ] Pioglitazone TAB* [Actos TAB*] 45 mg PO DAILY 07/05/19 [History Confirmed ] Benzonatate CAP* [Tessalon 100 MG CAP*] 100 mg PO TID PRN #21 cap 08/14/19 [Rx Confirmed 09/23/19] Oseltamivir CAP* [Tamiflu CAP*] 75 mg PO BID #10 cap 09/23/19 [Rx] PMH/Surg Hx/FS Hx/Imm Hx Previously Healthy: Yes Endocrine History: Diabetes - Surgical History Surgical History: Yes Surgery Procedure, Year, and Place: D&C; elective ab; tubal ligation - Family History Known Family History: Positive: Hypertension - Social History Alcohol Use: None Substance Use Type: None Smoking Status (MU): Current Every Day Smoker Type: Cigarettes Amount Used/How Often: 1 PPD Length of Time of Smoking/Using Tobacco: since age 15 Household Exposure Type: Cigarettes - Immunization History Most Recent Influenza Vaccination: unknown and refuses. Most Recent Tetanus Shot: unknown to pt. Most Recent Pneumonia Vaccination: n/a pt refused. Review of Systems All Other Systems Reviewed And Are Negative: Yes Constitutional: Positive: Other - SEE HPI Skin: Positive: Negative Eyes: Positive: Negative ENT: Positive: Sore Throat, Nasal Discharge, Sinus Congestion Respiratory: Positive: Cough Cardiovascular: Positive: Negative Gastrointestinal: Positive: Diarrhea Motor: Positive: Negative Neurovascular: Positive: Negative Musculoskeletal: Positive: Myalgia Neurological/Mental Status: Positive: Headache Psychological: Positive: Negative Is Patient Immunocompromised?: No Physical Exam Triage Information Reviewed: Yes Appearance: No Pain Distress, Well-Nourished, Ill-Appearing - MILD Vital Signs: Initial Vital Signs Temp 97.6 F 09/23/19 09:55 Pulse 81 09/23/19 09:55 Resp 16 09/23/19 09:55 BP 111/71 09/23/19 09:55 Pulse Ox 98 09/23/19 09:55 Vital Signs Reviewed: Yes Eye Exam: Normal Eyes: Positive: Conjunctiva Clear ENT: Positive: Pharynx normal, Nasal congestion, Nasal drainage, TMs normal Respiratory: Positive: Lungs clear, Normal breath sounds, No respiratory distress Cardiovascular: Positive: RRR Musculoskeletal: Positive: Strength Intact, ROM Intact Neurological: Positive: Alert, Muscle Tone Normal Psychological: Positive: Normal Response To Family, Age Appropriate Behavior Skin Exam: Normal Flu Course/Dx - Differential Dx/Diagnosis Provider Diagnosis: Influenza Discharge ED - Sign-Out/Discharge Documenting (check all that apply): Patient Departure All imaging exams completed and their final reports reviewed: No Studies - Discharge Plan Condition: Stable Disposition: HOME Prescriptions: Oseltamivir CAP* [Tamiflu CAP*] 75 mg PO BID #10 cap Patient Education Materials: Influenza (ED) Referrals: Andre Melton DO [Primary Care Provider] - Additional Instructions: FOLLOW UP WITH YOUR DOCTOR IF NOT COMPLETELY IMPROVED. GET REEVALUATED SOONER IF NOT IMPROVED OR WORSE OR ANY QUESTIONS OR CONCERNS. - Billing Disposition and Condition Condition: STABLE Disposition: Home
== END 2019-09-23 11:30 | disposition home or self-care (01) ==
LOC: UCEAST 09:34
DX: J11.1 Influenza due to unidentified influenza virus with other respiratory manifestations (principal); E11.9 Type 2 diabetes mellitus without complications; F17.210 Nicotine dependence, cigarettes, uncomplicated; Z88.8 Allergy status to other drugs, medicaments and biological substances; Z79.84 Long term (current) use of oral hypoglycemic drugs
CPT/HCPCS: 99212; G0463

== ENCOUNTER 2022-05-25 08:37 | Inpatient (IN) ==
[2022-05-25 10:44] LABS: ABS Monocytes 0.7 10^3/ul (0-0.8); ABS Neutrophils 4.8 10^3/ul (1.5-7.7); Eosinophil % 0.6 %; Hematocrit 49 % (35-47); Hemoglobin 16.2 g/dL (12.0-16.0); Lymphocyte % 26.2 %; Mean Corpuscular HGB Conc 33 g/dL (31-36); Mean Corpuscular Hemoglobin 31 pg (27-31); Mean Corpuscular Volume 94 fL (80-97); Nucleated Red Blood Cells % 0.1; Platelet Count 306 10^3/uL (150-450); Red Cell Distribution Width 13 % (10-15); White Blood Count 7.6 10^3/uL (3.5-10.8)
[2022-05-25 10:47] LABS: Urine Appearance Cloudy; Urine Bilirubin Negative (Negative); Urine Blood Negative (Negative); Urine Color Yellow; Urine Glucose 3+(>=500 mg/dL) (Negative); Urine Ketones 2+ (Negative); Urine Nitrite Negative (Negative); Urine Protein Negative (Negative); Urine Urobilinogen Negative (Negative)
[2022-05-25 11:01] LABS: Urine Benzodiazepine Screen None Detected (None Detect); Urine Cannabinoids Screen None Detected (None Detect); Urine Opiates Screen None Detected (None Detect)
[2022-05-25 11:28] LABS: HCG Pregnancy 0.76 mIU/mL
[2022-05-25 11:36] LABS: TSH Ultra Thyroid Stim Horm 1.45 mcIU/mL (0.34-5.60)
[2022-05-25 11:40] LABS: ALT 21 U/L (7-52); AST 15 U/L (13-39); Acetaminophen < 15 mcg/mL; Albumin/Globulin Ratio 1.7 (1-3); Alcohol, S < 13 mg/dL (<13); Alkaline Phosphatase 76 U/L (35-149); Anion Gap 11 mmol/L (2-11); Blood Urea Nitrogen 8 mg/dL (6-24); CO2 Carbon Dioxide 24 mmol/L (22-32); Chloride 100 mmol/L (101-111); Globulin 2.9 g/dL (2-4); Glucose 330 mg/dL (70-100); Potassium 4.3 mmol/L (3.5-5.0); Salicylate < 2.50 mg/dL (<30); Sodium 135 mmol/L (135-145); Total Protein 7.9 g/dL (6.4-8.9); eGFR CKD-EPI 118.8 (>60)
[2022-05-25] MEDS ORDERED: Nicotine GUM 4MG FRUIT FLAVOR PO ONE (15:17)
[2022-05-25] MEDS ORDERED: Al Hydrox/Mg Hydrox/Simet LIQ 30 ML UDC PO PRN (21:15)
[2022-05-26 08:00] LABS: HDL Cholesterol 40.4 mg/dL
[2022-05-26] MEDS: Vitamin THERAPEUTIC TAB PO SCH (10:12)
[2022-05-26] MEDS: Nicotine PATCH 14 MG/24 HR PATCH TRANSDERM SCH (11:16)
[2022-05-26] MEDS: Nicotine GUM 2MG FRUIT FLAVOR PO PRN ×3 (11:16→17:19)
[2022-05-26] MEDS ORDERED: Dextrose 50% Syringe 50 ml 25 GM/50 ML SYRINGE IV PUSH PRN (12:40)
[2022-05-26 17:07] LABS: Glucose Confirmatory 401 mg/dL (70-100)
[2022-05-26] MEDS: Insulin GLARGINE 100 un/ml 10 ml VIAL SUBCUT SCH (21:34)
[2022-05-27] MEDS ORDERED: Dextrose 50% Syringe 50 ml 25 GM/50 ML SYRINGE IV PUSH PRN (02:56)
[2022-05-27] MEDS: Nicotine GUM 2MG FRUIT FLAVOR PO PRN ×2 (07:55→10:02)
[2022-05-27] MEDS: Vitamin THERAPEUTIC TAB PO SCH (08:50)
[2022-05-27] MEDS: Nicotine PATCH 14 MG/24 HR PATCH TRANSDERM SCH (08:50)
[2022-05-27] MEDS: Nicotine GUM 4MG FRUIT FLAVOR PO PRN ×2 (12:26→20:40)
[2022-05-27] MEDS: Insulin GLARGINE 100 un/ml 10 ml VIAL SUBCUT SCH (20:45)
[2022-05-28] MEDS: Vitamin THERAPEUTIC TAB PO SCH (08:18)
[2022-05-28] MEDS: Insulin GLARGINE 100 un/ml 10 ml VIAL SUBCUT SCH (20:41)
[2022-05-28] MEDS: Nicotine GUM 4MG FRUIT FLAVOR PO PRN (22:23)
[2022-05-29] MEDS: Nicotine GUM 4MG FRUIT FLAVOR PO PRN (05:37)
[2022-05-29] MEDS: Vitamin THERAPEUTIC TAB PO SCH (08:43)
[2022-05-29] MEDS: Insulin GLARGINE 100 un/ml 10 ml VIAL SUBCUT SCH (20:23)
[2022-05-30] MEDS: Vitamin THERAPEUTIC TAB PO SCH (10:30)
[2022-05-30] MEDS: Nicotine GUM 4MG FRUIT FLAVOR PO PRN ×3 (11:33→18:10)
[2022-05-30] MEDS: Insulin GLARGINE 100 un/ml 10 ml VIAL SUBCUT SCH (20:28)
[2022-05-30] MEDS ORDERED: Insulin GLARGINE 100 un/ml 10 ml VIAL SUBCUT SCH (21:00)
[2022-05-31] MEDS: Nicotine GUM 4MG FRUIT FLAVOR PO PRN ×3 (04:05→16:40)
[2022-05-31] MEDS: Vitamin THERAPEUTIC TAB PO SCH (08:05)
[2022-05-31] MEDS: Insulin GLARGINE 100 un/ml 10 ml VIAL SUBCUT SCH (19:57)
[2022-06-01] MEDS: Nicotine GUM 4MG FRUIT FLAVOR PO PRN ×4 (08:12→21:44)
[2022-06-01] MEDS: Vitamin THERAPEUTIC TAB PO SCH (08:12)
[2022-06-01] MEDS: Insulin GLARGINE 100 un/ml 10 ml VIAL SUBCUT SCH (21:24)
[2022-06-02] MEDS: Vitamin THERAPEUTIC TAB PO SCH (09:14)
[2022-06-02 09:29] LABS: Albumin/Globulin Ratio 1.9 (1-3); Calcium 9.2 mg/dL (8.6-10.3); Globulin 2.1 g/dL (2-4); Potassium 4.5 mmol/L (3.5-5.0); Total Bilirubin 0.5 mg/dL (0.2-1.0); Total Protein 6.1 g/dL (6.4-8.9); eGFR CKD-EPI 119.3 (>60)
[2022-06-02] MEDS: Nicotine GUM 4MG FRUIT FLAVOR PO PRN ×2 (15:16→20:29)
[2022-06-02] MEDS: Insulin GLARGINE 100 un/ml 10 ml VIAL SUBCUT SCH (20:44)
[2022-06-03] MEDS: Vitamin THERAPEUTIC TAB PO SCH (08:27)
[2022-06-03] MEDS: Nicotine GUM 4MG FRUIT FLAVOR PO PRN (18:32)
[2022-06-03] MEDS: Insulin GLARGINE 100 un/ml 10 ml VIAL SUBCUT SCH (22:01)
[2022-06-04] MEDS: Vitamin THERAPEUTIC TAB PO SCH (07:23)
[2022-06-04] MEDS: Nicotine GUM 4MG FRUIT FLAVOR PO PRN (10:20)
[2022-06-04] MEDS: Insulin GLARGINE 100 un/ml 10 ml VIAL SUBCUT SCH (22:07)
[2022-06-05] MEDS: Nicotine GUM 4MG FRUIT FLAVOR PO PRN ×2 (01:11→18:20)
[2022-06-05] MEDS: Vitamin THERAPEUTIC TAB PO SCH (09:31)
[2022-06-05] MEDS: Insulin GLARGINE 100 un/ml 10 ml VIAL SUBCUT SCH (20:53)
[2022-06-06] MEDS: Vitamin THERAPEUTIC TAB PO SCH (07:44)
[2022-06-06] MEDS: Nicotine GUM 4MG FRUIT FLAVOR PO PRN (15:47)
[2022-06-06] MEDS: Insulin GLARGINE 100 un/ml 10 ml VIAL SUBCUT SCH (21:27)
[2022-06-07] MEDS: Vitamin THERAPEUTIC TAB PO SCH (08:19)
[2022-06-07] MEDS: Benzocaine/Menthol LOZ PO PRN ×2 (16:38→22:59)
[2022-06-07] MEDS: Insulin GLARGINE 100 un/ml 10 ml VIAL SUBCUT SCH (20:24)
[2022-06-08] MEDS: Vitamin THERAPEUTIC TAB PO SCH (07:47)
[2022-06-08] MEDS: Insulin GLARGINE 100 un/ml 10 ml VIAL SUBCUT SCH (20:19)
[2022-06-08] MEDS: Nicotine GUM 4MG FRUIT FLAVOR PO PRN (23:40)
[2022-06-09] MEDS: Vitamin THERAPEUTIC TAB PO SCH (07:36)
[2022-06-09 09:35] VITALS: BP 104/61
== END 2022-06-09 12:45 | disposition home or self-care (01) | DRG 750 ==
LOC: ED 08:37 → BSU 20:38 → EDHOLD 20:41 → BSU 22:02
PROVIDERS: ADMIT Psychiatry & Neurology Psychiatry; ATTEND Psychiatry & Neurology Psychiatry

== ENCOUNTER 2022-12-02 16:39 | Inpatient (IN) ==
[2022-12-02 17:21] LABS: ABS Eosinophils 0.1 10^3/uL (0.0-0.5); ABS Lymphocytes 2.3 10^3/uL (1.0-4.8); ABS Monocytes 0.9 10^3/uL (0.0-0.9); ABS Neutrophils 3.3 10^3/uL (1.5-7.6); ABS Nucleated RBC 0.01 10^3/ul; Eosinophil % 2.2 %; Hematocrit 39.7 % (35-45); Hemoglobin 13.9 g/dL (11.5-14.3); Lymphocyte % 34.1 %; Mean Corpuscular Hemoglobin 32.3 pg (27-33); Mean Corpuscular Hgb Conc 35.1 g/dL (31-36); Mean Corpuscular Volume 92.1 fL (80-97); Mean Platelet Volume 7.8 fL (7.5-11.2); Nucleated Red Blood Cells % 0.1 /100 WBC (0.0-0.4); Platelet Count 294 10^3/uL (150-450); Red Blood Count 4.31 10^6/uL (3.63-4.92); Red Cell Distribution Width 12.9 % (12-17); White Blood Count 6.7 10^3/uL (3.8-11.8)
[2022-12-02 17:32] LABS: Urine Appearance Cloudy; Urine Bilirubin Negative (Negative); Urine Blood Negative (Negative); Urine Color Yellow; Urine Glucose 3+(>=500 mg/dL) (Negative); Urine Ketones Trace (Negative); Urine Nitrite Negative (Negative); Urine Protein Negative (Negative); Urine Specific Gravity 1.003 (1.002-1.030); Urine Urobilinogen Negative (Negative)
[2022-12-02 17:50] LABS: ALT 24 U/L (7-52); AST 18 U/L (13-39); Acetaminophen < 15 mcg/mL; Albumin 4.4 g/dL (3.2-5.2); Albumin/Globulin Ratio 1.8 (1-3); Alcohol, S < 13 mg/dL (<13); Alkaline Phosphatase 57 U/L (35-149); Anion Gap 7 mmol/L (2-16); Blood Urea Nitrogen 6 mg/dL (6-24); CO2 Carbon Dioxide 24 mmol/L (22-32); Calcium 9.4 mg/dL (8.6-10.3); Chloride 102 mmol/L (101-111); Creatinine, Serum 0.48 mg/dL (0.51-0.95); Globulin 2.5 g/dL (2-4); Glucose 279 mg/dL (70-100); Magnesium 1.7 mg/dL (1.9-2.7); Potassium 3.7 mmol/L (3.5-5.0); Salicylate < 2.50 mg/dL (<30); Sodium 133 mmol/L (135-145); Total Protein 6.9 g/dL (6.4-8.9)
[2022-12-02 17:54] LABS: HCG Pregnancy < 0.60 mIU/mL; Urine Benzodiazepine Screen None Detected (None Detect); Urine Cannabinoids Screen None Detected (None Detect); Urine Opiates Screen None Detected (None Detect)
[2022-12-02 18:02] LABS: TSH Ultra Thyroid Stim Horm 0.99 mcIU/mL (0.34-5.60)
[2022-12-03] MEDS: Vitamin THERAPEUTIC TAB PO SCH (07:49)
[2022-12-04] MEDS: Vitamin THERAPEUTIC TAB PO SCH (08:37)
[2022-12-05] MEDS: Vitamin THERAPEUTIC TAB PO SCH (08:11)
[2022-12-05 10:15] LABS: Albumin 4.6 g/dL (3.2-5.2); Albumin/Globulin Ratio 1.7 (1-3); Calcium 9.8 mg/dL (8.6-10.3); Creatinine, Serum 0.56 mg/dL (0.51-0.95); Globulin 2.7 g/dL (2-4); Potassium 3.9 mmol/L (3.5-5.0); Total Bilirubin 1.2 mg/dL (0.2-1.0); Total Protein 7.3 g/dL (6.4-8.9); eGFR CKD-EPI 117.5 (>60)
[2022-12-05] MEDS ORDERED: Insulin GLARGINE 100 un/ml 10 ml VIAL SUBCUT SCH (21:00)
[2022-12-06] MEDS: Vitamin THERAPEUTIC TAB PO SCH (08:44)
[2022-12-06] MEDS: Insulin GLARGINE 100 un/ml 10 ml VIAL SUBCUT SCH (20:52)
[2022-12-07] MEDS: Vitamin THERAPEUTIC TAB PO SCH (08:11)
[2022-12-07] MEDS: Insulin GLARGINE 100 un/ml 10 ml VIAL SUBCUT SCH (19:55)
[2022-12-08] MEDS: Vitamin THERAPEUTIC TAB PO SCH (08:19)
[2022-12-08] MEDS: Insulin GLARGINE 100 un/ml 10 ml VIAL SUBCUT SCH (21:12)
[2022-12-09] MEDS: Vitamin THERAPEUTIC TAB PO SCH (08:12)
[2022-12-09] MEDS: Insulin GLARGINE 100 un/ml 10 ml VIAL SUBCUT SCH (20:49)
[2022-12-10] MEDS: Vitamin THERAPEUTIC TAB PO SCH (08:26)
[2022-12-10] MEDS: Al Hydrox/Mg Hydrox/Simet LIQ 30 ML UDC PO PRN (08:53)
[2022-12-10] MEDS: Insulin GLARGINE 100 un/ml 10 ml VIAL SUBCUT SCH (20:15)
[2022-12-11] MEDS: Vitamin THERAPEUTIC TAB PO SCH (07:53)
[2022-12-11] MEDS: Insulin GLARGINE 100 un/ml 10 ml VIAL SUBCUT SCH (20:27)
[2022-12-12] MEDS: Vitamin THERAPEUTIC TAB PO SCH (08:15)
[2022-12-12] MEDS: Insulin GLARGINE 100 un/ml 10 ml VIAL SUBCUT SCH (20:26)
[2022-12-13] MEDS: Vitamin THERAPEUTIC TAB PO SCH (08:28)
[2022-12-13] MEDS: Insulin GLARGINE 100 un/ml 10 ml VIAL SUBCUT SCH (20:48)
[2022-12-14] MEDS: Vitamin THERAPEUTIC TAB PO SCH (08:26)
[2022-12-14] MEDS: Insulin GLARGINE 100 un/ml 10 ml VIAL SUBCUT SCH (21:05)
[2022-12-15] MEDS: Vitamin THERAPEUTIC TAB PO SCH (17:54)
[2022-12-15] MEDS: Insulin GLARGINE 100 un/ml 10 ml VIAL SUBCUT SCH (20:42)
[2022-12-16] MEDS: Vitamin THERAPEUTIC TAB PO SCH (08:45)
[2022-12-16] MEDS: Nicotine GUM 2MG FRUIT FLAVOR PO PRN (17:45)
[2022-12-16] MEDS: Insulin GLARGINE 100 un/ml 10 ml VIAL SUBCUT SCH (23:29)
[2022-12-17] MEDS: Insulin GLARGINE 100 un/ml 10 ml VIAL SUBCUT SCH (21:17)
[2022-12-18] MEDS: Insulin GLARGINE 100 un/ml 10 ml VIAL SUBCUT SCH (21:09)
[2022-12-18] MEDS: Nicotine GUM 2MG FRUIT FLAVOR PO PRN (22:15)
[2022-12-19] MEDS: Insulin GLARGINE 100 un/ml 10 ml VIAL SUBCUT SCH (20:45)
[2022-12-19] MEDS: Nicotine GUM 2MG FRUIT FLAVOR PO PRN (22:24)
[2022-12-20] MEDS: Insulin GLARGINE 100 un/ml 10 ml VIAL SUBCUT SCH (22:05)
[2022-12-22] MEDS: Insulin GLARGINE 100 un/ml 10 ml VIAL SUBCUT SCH ×2 (00:20→21:04)
[2022-12-22] MEDS: Nicotine GUM 2MG FRUIT FLAVOR PO PRN (17:46)
[2022-12-23] MEDS ORDERED: ARIPiprazole LAUROXIL INITIO 675 MG/2.4 ML SYRINGE IM ONE (08:12)
[2022-12-23] MEDS ORDERED: ARIPiprazole LAUROXIL 441 MG/1.6 ML SYRINGE IM ONE (08:12)
[2022-12-23] MEDS: Al Hydrox/Mg Hydrox/Simet LIQ 30 ML UDC PO PRN (10:04)
[2022-12-23] MEDS: Insulin GLARGINE 100 un/ml 10 ml VIAL SUBCUT SCH (21:25)
[2022-12-24] MEDS: Insulin GLARGINE 100 un/ml 10 ml VIAL SUBCUT SCH (22:22)
[2022-12-25] MEDS: Nicotine GUM 2MG FRUIT FLAVOR PO PRN (16:57)
[2022-12-25] MEDS: Insulin GLARGINE 100 un/ml 10 ml VIAL SUBCUT SCH (21:48)
[2022-12-26 10:32] VITALS: BP 116/68
== END 2022-12-26 12:02 | disposition home or self-care (01) | DRG 750 ==
LOC: ED 16:39 → EDHOLD 22:38 → BSU 23:56
PROVIDERS: ADMIT Psychiatry & Neurology Addiction Psychiatry; ATTEND Psychiatry & Neurology Psychiatry

== ENCOUNTER 2024-02-24 14:50 | Inpatient (IN) ==
[2024-02-24 15:37] LABS: ABS Basophils 0.1 10^3/uL (0.0-0.1); ABS Eosinophils 0.2 10^3/uL (0.0-0.5); ABS Lymphocytes 2.3 10^3/uL (1.0-4.8); ABS Monocytes 0.6 10^3/uL (0.0-0.9); ABS Neutrophils 5.8 10^3/uL (1.5-7.6); ABS Nucleated RBC 0.01 10^3/ul; Eosinophil % 1.7 %; Hematocrit 39.4 % (35-45); Hemoglobin 13.7 g/dL (11.5-14.3); Lymphocyte % 25.5 %; Mean Corpuscular Hemoglobin 32.5 pg (27-33); Mean Corpuscular Hgb Conc 34.9 g/dL (31-36); Mean Platelet Volume 8.1 fL (7.5-11.2); Nucleated Red Blood Cells % 0.1 %/100WBC (0.0-0.8); Platelet Count 300 10^3/uL (150-450); Red Blood Count 4.23 10^6/uL (3.63-4.92); Red Cell Distribution Width 13.6 % (12-17); White Blood Count 8.9 10^3/uL (3.8-11.8)
[2024-02-24 16:14] LABS: ALT 26 U/L (7-52); AST 16 U/L (13-39); Acetaminophen < 15 mcg/mL; Albumin 4.6 g/dL (3.2-5.2); Albumin/Globulin Ratio 1.8 (1-3); Alcohol, S < 13 mg/dL (<13); Alkaline Phosphatase 65 U/L (35-149); Anion Gap 9 mmol/L (2-16); Blood Urea Nitrogen 7 mg/dL (6-24); CO2 Carbon Dioxide 23 mmol/L (22-32); Calcium 9.8 mg/dL (8.6-10.3); Chloride 105 mmol/L (101-111); Creatinine, Serum 0.44 mg/dL (0.51-0.95); Globulin 2.6 g/dL (2-4); Glucose 144 mg/dL (70-100); Potassium 3.9 mmol/L (3.5-5.0); Salicylate < 2.50 mg/dL (<30); Sodium 137 mmol/L (135-145); Total Bilirubin 0.7 mg/dL (0.2-1.0); Total Protein 7.2 g/dL (6.4-8.9); eGFR CKD-EPI 123.8 (>60)
[2024-02-24 16:28] LABS: TSH Ultra Thyroid Stim Horm 1.02 mcIU/mL (0.34-5.60)
[2024-02-24] MEDS ORDERED: Al Hydrox/Mg Hydrox/Simet LIQ 30 ML UDC PO PRN (21:10)
[2024-02-24 22:20] LABS: Urine Appearance Turbid; Urine Bilirubin Negative (Negative); Urine Blood Negative (Negative); Urine Color Yellow; Urine Glucose 4+ (>=1000 mg/dL) (Negative); Urine Ketones 1+ (Negative); Urine Nitrite Negative (Negative); Urine Protein Trace (Negative); Urine Specific Gravity 1.015 (1.002-1.030); Urine Urobilinogen 2+ (Negative)
[2024-02-24 22:27] LABS: Urine Bacteria Absent /HPF (Absent); Urine Red Blood Cell Trace(0-2/hpf) /HPF (0-Trace); Urine Squamous Epithelial Cell Present /HPF (Absent); Urine White Blood Cell 1+(6-10/hpf) /HPF (0-Trace)
[2024-02-24 22:43] LABS: Urine Benzodiazepine Screen None Detected (None Detect); Urine Cannabinoids Screen None Detected (None Detect); Urine Opiates Screen None Detected (None Detect)
[2024-02-25] MEDS: Vitamin THERAPEUTIC TAB PO SCH (11:07)
[2024-02-26 09:43] LABS: HDL Cholesterol 31.5 mg/dL
[2024-02-27] MEDS: Nicotine GUM 4MG FRUIT FLAVOR PO PRN (22:30)
[2024-02-28] MEDS: Nicotine GUM 4MG FRUIT FLAVOR PO ONE (11:37)
[2024-02-28] MEDS: Nicotine GUM 2MG FRUIT FLAVOR PO ONE (11:37)
[2024-03-06] MEDS: Erythromycin OPTH OINT APPLIC OINT RIGHT EYE SCH (13:17)
[2024-03-16 17:59] LABS: Glucose Confirmatory 409 mg/dL (70-100)
[2024-03-18] MEDS: Paliperidone SUSTENNA 234 MG/1.5 ML IM ONE (12:43)
[2024-03-18] MEDS: Insulin GLARGINE 100 un/ml 10 ml VIAL SUBCUT SCH (13:17)
[2024-03-19] MEDS: Insulin GLARGINE 100 un/ml 10 ml VIAL SUBCUT SCH (08:16)
[2024-03-20] MEDS ORDERED: Dextrose 50% Syringe 50 ml 25 GM/50 ML SYRINGE IV PUSH PRN (13:11)
[2024-03-21 08:47] VITALS: BP 105/70
[2024-03-21] MEDS: Paliperidone SUSTENNA 156 MG/1 ML IM ONE (12:08)
== END 2024-03-21 13:05 | disposition home or self-care (01) | DRG 750 ==
LOC: ED 14:50 → EDHOLD 20:35 → BSU 21:41
PROVIDERS: ADMIT Psychiatry & Neurology Addiction Psychiatry; ATTEND Student in an Organized Health Care Education/Training Program